=== PATIENT | female | born 1945 | race Caucasian/White ===

== ENCOUNTER → 2019-04-14 08:23 | Outpatient (BNVA) | payer MEDICARE, MEDICAID, SELFPAY | PROVIDERS: Family Provider Nurse Practitioner Family; PCP Nurse Practitioner Family; Visit Provider Nurse Practitioner | DX: M54.5 Low back pain (principal); M47.9 Spondylosis, unspecified; M54.2 Cervicalgia; Z79.891 Long term (current) use of opiate analgesic | CPT/HCPCS: 99213 ==

== ENCOUNTER → 2019-04-22 16:22 | Outpatient (BNVA) | payer MEDICARE, MEDICAID, SELFPAY | PROVIDERS: Family Provider Nurse Practitioner Family; PCP Nurse Practitioner Family; Visit Provider Nurse Practitioner Family | DX: M25.511 Pain in right shoulder (principal); B02.9 Zoster without complications; M75.31 Calcific tendinitis of right shoulder; M19.011 Primary osteoarthritis, right shoulder | CPT/HCPCS: 73030 ==

== ENCOUNTER → 2019-04-27 09:49 | Outpatient (BNVA) | payer MEDICARE, MEDICAID, SELFPAY | PROVIDERS: Family Provider Nurse Practitioner Family; PCP Nurse Practitioner Family; Visit Provider Nurse Practitioner Family | DX: M75.31 Calcific tendinitis of right shoulder (principal); M19.011 Primary osteoarthritis, right shoulder; M24.111 Other articular cartilage disorders, right shoulder; G31.9 Degenerative disease of nervous system, unspecified; I67.82 Cerebral ischemia; R55 Syncope and collapse; M25.511 Pain in right shoulder; W19.XXXA Unspecified fall, initial encounter; Y92.009 Unspecified place in unspecified non-institutional (private) residence as the place of occurrence of the external cause | CPT/HCPCS: 73030; 80053; 82728; 83540; 83550; 85025 ==

== ENCOUNTER 2019-04-28 07:26 | Outpatient (CLI) | payer MEDICARE, MEDICAID, SELFPAY ==
--- NOTE | 2019-04-28 08:00 | CT_ITS ---
WS: [id number] CT HEAD NONCONTRAST HISTORY: Patient fell, syncope. TECHNIQUE: Contiguous axial imaging performed through the brain in 2.5 mm imaging. Bone and soft tiss ue windows. Sagittal and coronal reformats reviewed. All CT scans at [facility] use at le ast one of these dose optimization techniques: automated exposure control; mA and/or kV adjustment pe r patient size (includes targeted exams where dose is matched to clinical indication); or iterative r econstruction. DLP: 722.79 mGy.cm COMPARISON: None available. No acute intracranial hemorrhage, midline shift or mass effect. Mild atrophy and mild chronic microvascular ischemic disease. No infarcts. Ventricles: Normal size with no hydrocephalus. No inferior displacement of cerebellar tonsils. Visualized clivus and pituitary gland are normal. Paranasal sinuses: As visualized are clear. Mastoid air cells: Well pneumatized. Calvarium and scalp: Skull is intact with no soft tissue edema or swelling. CT/CT head wo con* [id number] IMPRESSION: 1. No acute intracranial hemorrhage or edema. 2. Mild atrophy and chronic ischemic disease.
== END 2019-04-28 07:27 | disposition home or self-care (01) ==
LOC: US 07:30
PROVIDERS: Family Provider Nurse Practitioner Family; PCP Nurse Practitioner Family; Visit Provider Nurse Practitioner Family
DX: R55 Syncope and collapse (principal); W19.XXXA Unspecified fall, initial encounter; I67.82 Cerebral ischemia
CPT/HCPCS: 70450

== ENCOUNTER → 2019-06-09 08:44 | Outpatient (BNVA) | payer MEDICARE, MEDICAID, SELFPAY | PROVIDERS: Family Provider Nurse Practitioner Family; PCP Nurse Practitioner Family; Visit Provider Anesthesiology | DX: Z76.89 Persons encountering health services in other specified circumstances (principal) ==

== ENCOUNTER → 2019-07-16 07:57 | Outpatient (BNVA) | payer MEDICARE, MEDICAID, SELFPAY | PROVIDERS: Family Provider Nurse Practitioner Family; PCP Nurse Practitioner Family; Visit Provider Anesthesiology | DX: M79.602 Pain in left arm (principal); M25.512 Pain in left shoulder; R10.9 Unspecified abdominal pain; R73.09 Other abnormal glucose | CPT/HCPCS: 36416; 82962 ==

== ENCOUNTER → 2019-08-12 08:56 | Outpatient (BNVA) | payer MEDICARE, MEDICAID, SELFPAY | PROVIDERS: Family Provider Nurse Practitioner Family; PCP Nurse Practitioner Family; Visit Provider Nurse Practitioner Family | DX: I10 Essential (primary) hypertension (principal); E05.90 Thyrotoxicosis, unspecified without thyrotoxic crisis or storm; K21.9 Gastro-esophageal reflux disease without esophagitis; J30.89 Other allergic rhinitis; R11.0 Nausea; E04.9 Nontoxic goiter, unspecified; R10.9 Unspecified abdominal pain | CPT/HCPCS: 80053; 80061; 84443; 85025 ==

== ENCOUNTER 2019-09-08 09:21 | Outpatient (CLI) | payer MEDICARE, MEDICAID, SELFPAY ==
--- NOTE | 2019-09-08 10:15 | US_ITS ---
WS: [id number] ULTRASOUND THYROID TECHNIQUE: Ultrasound of the thyroid. CLINICAL INFORMATION: goiter, hyperthroidism COMPARISON: 2019 FINDINGS: Thyroid: Heterogeneous thyroid echotexture bilaterally with small cystic nodules. No dominant nodules to target for biopsy. This is unchanged from previous.. Right thyroid lobe: 6.2 cm x 3.2 cm x 4.3 cm Left thyroid lobe: 7.3 cm x 4.1 cm x 3.3 cm. Isthmus: 5.4 mm. Cervical lymphadenopathy: None. US/US thyroid [id number] IMPRESSION: 1. Heterogeneous thyroid echotexture bilaterally consistent with multinodular goiter is unchanged in appearance. No dominant nodules.
== END 2019-09-08 09:22 | disposition home or self-care (01) ==
LOC: US 09:24
PROVIDERS: Family Provider Nurse Practitioner Family; PCP Nurse Practitioner Family; Visit Provider Nurse Practitioner Family
DX: E04.9 Nontoxic goiter, unspecified (principal); E05.90 Thyrotoxicosis, unspecified without thyrotoxic crisis or storm
CPT/HCPCS: 76536

== ENCOUNTER → 2019-09-18 08:58 | Outpatient (BNVA) | payer MEDICARE, MEDICAID, SELFPAY | PROVIDERS: Family Provider Nurse Practitioner Family; PCP Nurse Practitioner Family; Visit Provider Anesthesiology | DX: M54.42 Lumbago with sciatica, left side (principal); M54.41 Lumbago with sciatica, right side; M54.9 Dorsalgia, unspecified; M47.9 Spondylosis, unspecified; Z79.891 Long term (current) use of opiate analgesic | CPT/HCPCS: 99213; 99214 ==

== ENCOUNTER → 2019-11-19 07:51 | Outpatient (BNVA) | payer MEDICARE, MEDICAID, SELFPAY | PROVIDERS: Family Provider Nurse Practitioner Family; PCP Nurse Practitioner Family; Visit Provider Anesthesiology | DX: M54.42 Lumbago with sciatica, left side (principal); M54.41 Lumbago with sciatica, right side; M54.9 Dorsalgia, unspecified; M47.9 Spondylosis, unspecified; Z79.891 Long term (current) use of opiate analgesic | CPT/HCPCS: 99213; 99214 ==

== ENCOUNTER → 2019-11-24 13:38 | Outpatient (BNVA) | payer MEDICARE, MEDICAID, SELFPAY | PROVIDERS: Family Provider Nurse Practitioner Family; PCP Nurse Practitioner Family; Visit Provider Nurse Practitioner Family | DX: R30.0 Dysuria (principal) | CPT/HCPCS: 81000 ==

== ENCOUNTER → 2019-11-26 10:20 | Outpatient (BNVA) | payer MEDICARE, MEDICAID, SELFPAY | PROVIDERS: Family Provider Nurse Practitioner Family; PCP Nurse Practitioner Family; Referring Provider Dermatology; Visit Provider Dermatology | DX: L57.0 Actinic keratosis (principal); L82.0 Inflamed seborrheic keratosis; D48.5 Neoplasm of uncertain behavior of skin; L82.1 Other seborrheic keratosis; D23.9 Other benign neoplasm of skin, unspecified; S80.811A Abrasion, right lower leg, initial encounter; X58.XXXA Exposure to other specified factors, initial encounter | CPT/HCPCS: 17000; 17003; 17110; 99203; 99204 ==

== ENCOUNTER → 2019-12-24 10:10 | Outpatient (BNVA) | payer MEDICARE, MEDICAID, SELFPAY | PROVIDERS: Family Provider Nurse Practitioner Family; PCP Nurse Practitioner Family; Visit Provider Dermatology | DX: D48.9 Neoplasm of uncertain behavior, unspecified (principal) | CPT/HCPCS: 88304 ==

== ENCOUNTER → 2020-01-15 09:10 | Outpatient (BNVA) | payer MEDICARE, MEDICAID, SELFPAY | PROVIDERS: Family Provider Nurse Practitioner Family; PCP Nurse Practitioner Family; Visit Provider Anesthesiology | DX: M54.42 Lumbago with sciatica, left side (principal); M54.41 Lumbago with sciatica, right side; M47.9 Spondylosis, unspecified; M54.9 Dorsalgia, unspecified; Z79.891 Long term (current) use of opiate analgesic | CPT/HCPCS: 99212; 99214 ==

== ENCOUNTER → 2020-02-11 08:59 | Outpatient (BNVA) | payer MEDICARE, MEDICAID, SELFPAY | PROVIDERS: Family Provider Nurse Practitioner Family; PCP Nurse Practitioner Family; Visit Provider Nurse Practitioner Family | DX: I10 Essential (primary) hypertension (principal); E05.90 Thyrotoxicosis, unspecified without thyrotoxic crisis or storm; Z13.21 Encounter for screening for nutritional disorder; K21.9 Gastro-esophageal reflux disease without esophagitis; R11.0 Nausea; E04.9 Nontoxic goiter, unspecified; Z12.39 Encounter for other screening for malignant neoplasm of breast; Z90.12 Acquired absence of left breast and nipple; R53.83 Other fatigue; Z12.31 Encounter for screening mammogram for malignant neoplasm of breast | CPT/HCPCS: 80053; 80061; 82306; 84443; 85025 ==

== ENCOUNTER → 2020-03-16 09:10 | Outpatient (BNVA) | payer MEDICARE, MEDICAID, SELFPAY | PROVIDERS: Family Provider Nurse Practitioner Family; PCP Nurse Practitioner Family; Visit Provider Anesthesiology | DX: M47.9 Spondylosis, unspecified (principal); M54.9 Dorsalgia, unspecified; Z79.891 Long term (current) use of opiate analgesic | CPT/HCPCS: 99214 ==

== ENCOUNTER → 2020-04-22 11:46 | Outpatient (BNVA) | payer MEDICARE, MEDICAID, SELFPAY | PROVIDERS: PCP Nurse Practitioner Family; Visit Provider Nurse Practitioner | DX: I70.0 Atherosclerosis of aorta (principal); Z77.29 Contact with and (suspected) exposure to other hazardous substances; F41.9 Anxiety disorder, unspecified | CPT/HCPCS: 71046 ==

== ENCOUNTER → 2020-05-11 08:49 | Outpatient (BNVA) | payer MEDICARE, MEDICAID, SELFPAY | PROVIDERS: PCP Nurse Practitioner Family; Visit Provider Anesthesiology | DX: M54.42 Lumbago with sciatica, left side (principal); M47.9 Spondylosis, unspecified; M54.9 Dorsalgia, unspecified; Z79.891 Long term (current) use of opiate analgesic | CPT/HCPCS: 99213 ==

== ENCOUNTER → 2020-07-13 09:02 | Outpatient (BNVA) | payer MEDICARE, MEDICAID, SELFPAY | PROVIDERS: PCP Nurse Practitioner Family; Visit Provider Anesthesiology | DX: M47.9 Spondylosis, unspecified (principal); M54.9 Dorsalgia, unspecified; Z79.891 Long term (current) use of opiate analgesic | CPT/HCPCS: 99213 ==

== ENCOUNTER → 2020-07-27 14:38 | Outpatient (BNVA) | payer MEDICARE, MEDICAID, SELFPAY | PROVIDERS: PCP Nurse Practitioner Family; Visit Provider Nurse Practitioner Family | DX: R53.83 Other fatigue (principal); I10 Essential (primary) hypertension; E05.90 Thyrotoxicosis, unspecified without thyrotoxic crisis or storm; E04.9 Nontoxic goiter, unspecified; R11.0 Nausea; K21.9 Gastro-esophageal reflux disease without esophagitis; J30.89 Other allergic rhinitis; E55.9 Vitamin D deficiency, unspecified; F41.9 Anxiety disorder, unspecified; R53.1 Weakness; X00.1XXA Exposure to smoke in uncontrolled fire in building or structure, initial encounter | CPT/HCPCS: 80053; 80061; 82306; 82607; 84443; 85025 ==

== ENCOUNTER 2020-07-28 17:01 | Observation (INO) | payer MEDICARE, MEDICAID, SELFPAY ==
[2020-07-28] VITALS (11 sets, daily range): BP systolic 138–169; BP diastolic 65–84; PULSE 75–88; RESP 12–16; TEMP 36.7–37; O2SAT 96–100; BMI 18.8
--- NOTE | 2020-07-28 17:42 | W.ED.GENADLT ---
Documented by User: Edd Patino DO 07/29/20 08:53 HPI - General Adult General: Chief complaint: General Medical Stated complaint: LOW HEMOGLOBIN Time Seen by Provider: 07/28/20 17:27 History of Present Illness: HPI narrative: 75-year-old female presents to the emergency room from her primary care doctor's office. She not been feeling well for a while she was recently evaluated and had a hemoglobin today that came back at 5 6. She tells me that a few years ago she had anemia and required transfusion as well. Patient was sent here for transfusion. She denies any hematochezia melena hematemesis coffee-ground emesis she cannot really tell me what happened last time that she required a transfusion she does not seem to recall having a endoscopy evaluation. When I asked her question she is somewhat confused she gives me a long detailed history about her breast lump that was removed but is not really able to tell me about her anemia or any evaluation for anemia in the past. Onset (ago): unknown Relieving factors: none Exacerbating factors: none Associated symptoms: Reports confusion and weakness; Deny chest pain, cough, diaphoresis, decreased appetite, dyspnea, fevers/chills, headache(s), malaise, nausea, rash, palpitations, seizures, short of breath, syncope or vomiting Treatments prior to arrival: none Review of Systems Const: Denies: malaise or diaphoresis ENMT: Denies: throat pain, ear or mastoid pain, nasal discharge or nasal congestion Card: Denies: chest pain, palpitations or syncope Resp: Denies: dyspnea GI: Denies: nausea or vomiting : Denies: flank pain, difficulty voiding, dysuria, urinary frequency or urinary urgency Skin/Breast: Denies: rash Neuro: Reports: confusion; Denies: headache(s) PFSH ED PFSH: Medical History Breast cancer in female Chronic GERD Chronic nausea DDD (degenerative disc disease) Cervical and Lumbar Environmental and seasonal allergies Essential hypertension Goiter Hyperthyroidism Long-term current use of opiate analgesic Pain management contract signed Spondylosis and allied disorders With radiculopathy Surgical History H/O left mastectomy Hx of cataract extraction (~2012) bilateral Hx of section Hx of hysterectomy, total Hx of left mastectomy total of 5 surgeries on her left breast had implant for 30 days then removed. Then had permanent implant in. Family History Other Diabetes Hypertension Vascular disease Denies family history of Anesthesia complication Bleeding disorder Social History Smoking and tobacco status: never smoked Second hand smoke exposure: No Smoking risk assessment/counseling performed?: No Alcohol intake: never Desire information about alcohol rehabilitation?: No Counseling given: No Desire information about substance/drug rehabilitation?: No Counseling given: No Adopted: No Caregiver/support person: No Lives independently: Yes Household members: none Housing: House Marital status: / service: No Current occupational status: retired History of recent travel: No Current gender identity: Female Physical Exam Const: COMMON NORMALS: no acute distress GENERAL APPEARANCE: cooperative and comfortable ORIENTATION/CONSCIOUSNESS: Yes oriented to person, Yes oriented to place and Yes oriented to time HENMT: COMMON NORMALS: normocephalic, atraumatic and hearing grossly normal bilaterally HEAD & SCALP: normocephalic and atraumatic Neck/C-Spine: COMMON NORMALS: no JVD Resp: COMMON NORMALS: normal respiratory effort, No retractions, No use of accessory muscles and clear to auscultation bilaterally AUSCULTATION: clear to auscultation bilaterally Cardio: COMMON NORMALS: no JVD, regular rate, regular rhythm and No murmurs present (Cardio) RATE: regular rate RHYTHM: regular rhythm GI: COMMON NORMALS: Soft to palpation and No hepatosplenomegaly present AUSCULTATION: Yes normoactive bowel sounds PALPATION: Yes Soft to palpation, No Tenderness to palpation present (GI), No Guarding due to palpation present (GI) and Yes No hepatosplenomegaly present Extremity: COMMON NORMALS: normal to inspection, capillary refill normal, no clubbing, cyanosis or edema, no calf tenderness and no pedal edema Neuro: SENSORIUM/ORIENTATION: Yes oriented to person, Yes oriented to place and Yes oriented to time Skin: COMMON NORMALS: no rashes or lesions noted GENERAL SKIN EXAM: no rashes or lesions noted Course Vital Signs: Vital signs: Vital Signs Temperature 98.9 F 07/29/20 08:00 Pulse Rate 66 07/29/20 08:00 Respiratory Rate 16 07/29/20 08:00 Blood Pressure 151/79 07/29/20 08:00 Pulse Oximetry 99 07/29/20 08:00 MDM - General Adult MDM Narrative: Medical decision making narrative: Severe anemia. Her blood pressure has been stable. She has no active bleeding. She relates she has had this before she is moderately confused when asked specific questions about bleeding history of previous GI work-up she goes into a long story about a previous breast biopsy she had done. Labs still pending care turned over to Dr. Colorado see his notes for final diagnosis and disposition. Lab Data: Labs: Lab Results 07/28/20 07/28/20 07/28/20 Range/Units 17:35 17:35 17:35 WBC 4.7 (4.0-10.0) 10^3/ uL RBC 2.64 L (4.1-5.3) 10^6/u L Hgb 5.0 L* (11.5-15.3) g/dL Hct 19.2 L* (37.0-47.0) % MCV 72.7 L (81-99) fL MCH 18.9 L (28.0-34.0) pg MCHC 26.0 L (30.0-36.0) g/dL RDW 16.5 H (12.1-15.1) % Plt Count 310 (130-400) 10^3/c mm MPV 9.9 (7.4-10.4) fL Neut % (Auto) 60.7 % Lymph % (Auto) 23.9 % Cochran % (Auto) 12.0 % Eos % (Auto) 2.1 % Baso % (Auto) 1.1 % Neut # (Auto) 2.84 (1.8-7.7) 10^3/u L Lymph # (Auto) 1.1 (0.8-4.8) 10^3/u L Cochran # (Auto) 0.6 (0.2-0.9) 10^3/u L Eos # (Auto) 0.1 (0.0-0.8) 10^3/u L Baso # (Auto) 0.1 (0.0-0.1) 10^3/u L Nucleated RBC % (a uto) 0 % Nucleated RBCs # 0.0 /100WBC Sodium 140 (136-145) mmol/L Potassium 4.2 (3.5-5.1) mmol/L Chloride 105 (98-107) mmol/L Carbon Dioxide 26 (22-29) mmol/L Anion Gap 13.2 (5-19) BUN 18 (8-23) mg/dL Creatinine 0.7 (0.5-0.9) mg/dL GFR Calculation Not Reportable Glucose 106 (65-115) mg/dL Calculated Osmolal ity 292 (285-295) mOsm/k g Calcium 9.1 (8.5-10.5) mg/dL Iron (37-145) ug/dL TIBC mcg/dl % Saturation (20-50) % Unsat Iron Binding (112-347) ug/dL Transferrin (200-360) mg/dL Ferritin (15-150) ng/mL Total Bilirubin 0.2 (0.15-1.2) mg/dL AST 13 (0-32) U/L ALT 9 (0-33) U/L Alkaline Phosphata se 79 (35-105) IU/L Total Protein 6.9 (6.6-8.7) g/dL Albumin 4.2 (3.5-5.2) g/dL Globulin 2.7 (1.3-4.6) g/dL Vitamin B12 (232-1245) pg/mL Folate (4.8-37.3) ng/mL Blood Type O Positive Rho(D) Type Positive / 4+ Antibody Screen Negative Crossmatch See Detail 07/28/20 07/28/20 07/28/20 Range/Units 17:35 17:35 17:35 WBC (4.0-10.0) 10^3/ uL RBC (4.1-5.3) 10^6/u L Hgb (11.5-15.3) g/dL Hct (37.0-47.0) % MCV (81-99) fL MCH (28.0-34.0) pg MCHC (30.0-36.0) g/dL RDW (12.1-15.1) % Plt Count (130-400) 10^3/c mm MPV (7.4-10.4) fL Neut % (Auto) % Lymph % (Auto) % Cochran % (Auto) % Eos % (Auto) % Baso % (Auto) % Neut # (Auto) (1.8-7.7) 10^3/u L Lymph # (Auto) (0.8-4.8) 10^3/u L Cochran # (Auto) (0.2-0.9) 10^3/u L Eos # (Auto) (0.0-0.8) 10^3/u L Baso # (Auto) (0.0-0.1) 10^3/u L Nucleated RBC % (a uto) % Nucleated RBCs # /100WBC Sodium (136-145) mmol/L Potassium (3.5-5.1) mmol/L Chloride (98-107) mmol/L Carbon Dioxide (22-29) mmol/L Anion Gap (5-19) BUN (8-23) mg/dL Creatinine (0.5-0.9) mg/dL GFR Calculation Glucose (65-115) mg/dL Calculated Osmolal ity (285-295) mOsm/k g Calcium (8.5-10.5) mg/dL Iron 14 L (37-145) ug/dL TIBC 420 mcg/dl % Saturation 3.3 L (20-50) % Unsat Iron Binding 406 H (112-347) ug/dL Transferrin 344 (200-360) mg/dL Ferritin 5 L (15-150) ng/mL Total Bilirubin (0.15-1.2) mg/dL AST (0-32) U/L ALT (0-33) U/L Alkaline Phosphata se (35-105) IU/L Total Protein (6.6-8.7) g/dL Albumin (3.5-5.2) g/dL Globulin (1.3-4.6) g/dL Vitamin B12 662 (232-1245) pg/mL Folate 18.3 (4.8-37.3) ng/mL Blood Type Rho(D) Type Antibody Screen Crossmatch Discharge Plan Discharge Patient Disposition: Admitted As Inpatient Admit Provider: Conrado Rice Clinical Impression: Anemia Qualifiers: Anemia type: unspecified type Qualified Code(s): D64.9 - Anemia, unspecified Condition: Stable Coding Level of Care Code ED Car Installations Supervisor for Chg Fwd Documented by User: Imer Colorado MD 07/28/20 18:54 HPI - General Adult General: Chief complaint: General Medical Stated complaint: LOW HEMOGLOBIN Time Seen by Provider: 07/28/20 17:27 PFSH ED PFSH: Medical History Breast cancer in female Chronic GERD Chronic nausea DDD (degenerative disc disease) Cervical and Lumbar Environmental and seasonal allergies Essential hypertension Goiter Hyperthyroidism Long-term current use of opiate analgesic Pain management contract signed Spondylosis and allied disorders With radiculopathy Surgical History H/O left mastectomy Hx of cataract extraction (~2012) bilateral Hx of section Hx of hysterectomy, total Hx of left mastectomy total of 5 surgeries on her left breast had implant for 30 days then removed. Then had permanent implant in. Family History Other Diabetes Hypertension Vascular disease Denies family history of Anesthesia complication Bleeding disorder Social History Smoking and tobacco status: never smoked Second hand smoke exposure: No Smoking risk assessment/counseling performed?: No Alcohol intake: never Desire information about alcohol rehabilitation?: No Counseling given: No Desire information about substance/drug rehabilitation?: No Counseling given: No Adopted: No Caregiver/support person: No Lives independently: Yes Household members: none Housing: House Marital status: / service: No Current occupational status: retired History of recent travel: No Current gender identity: Female Course Vital Signs: Vital signs: Vital Signs Temperature 98.9 F 07/29/20 08:00 Pulse Rate 66 07/29/20 08:00 Respiratory Rate 16 07/29/20 08:00 Blood Pressure 151/79 07/29/20 08:00 Pulse Oximetry 99 07/29/20 08:00 MDM - General Adult MDM Narrative: Medical decision making narrative: Patient presents here with anemia with hemoglobin here of 5.0. She has no signs of active bleeding in her blood pressure here is normal. Will transfuse 2 units I spoke to hospitalist will admit at this time. She has been stable on the ER Lab Data: Labs: Lab Results 07/28/20 07/28/20 07/28/20 Range/Units 17:35 17:35 17:35 WBC 4.7 (4.0-10.0) 10^3/ uL RBC 2.64 L (4.1-5.3) 10^6/u L Hgb 5.0 L* (11.5-15.3) g/dL Hct 19.2 L* (37.0-47.0) % MCV 72.7 L (81-99) fL MCH 18.9 L (28.0-34.0) pg MCHC 26.0 L (30.0-36.0) g/dL RDW 16.5 H (12.1-15.1) % Plt Count 310 (130-400) 10^3/c mm MPV 9.9 (7.4-10.4) fL Neut % (Auto) 60.7 % Lymph % (Auto) 23.9 % Cochran % (Auto) 12.0 % Eos % (Auto) 2.1 % Baso % (Auto) 1.1 % Neut # (Auto) 2.84 (1.8-7.7) 10^3/u L Lymph # (Auto) 1.1 (0.8-4.8) 10^3/u L Cochran # (Auto) 0.6 (0.2-0.9) 10^3/u L Eos # (Auto) 0.1 (0.0-0.8) 10^3/u L Baso # (Auto) 0.1 (0.0-0.1) 10^3/u L Nucleated RBC % (a uto) 0 % Nucleated RBCs # 0.0 /100WBC Sodium 140 (136-145) mmol/L Potassium 4.2 (3.5-5.1) mmol/L Chloride 105 (98-107) mmol/L Carbon Dioxide 26 (22-29) mmol/L Anion Gap 13.2 (5-19) BUN 18 (8-23) mg/dL Creatinine 0.7 (0.5-0.9) mg/dL GFR Calculation Not Reportable Glucose 106 (65-115) mg/dL Calculated Osmolal ity 292 (285-295) mOsm/k g Calcium 9.1 (8.5-10.5) mg/dL Iron (37-145) ug/dL TIBC mcg/dl % Saturation (20-50) % Unsat Iron Binding (112-347) ug/dL Transferrin (200-360) mg/dL Ferritin (15-150) ng/mL Total Bilirubin 0.2 (0.15-1.2) mg/dL AST 13 (0-32) U/L ALT 9 (0-33) U/L Alkaline Phosphata se 79 (35-105) IU/L Total Protein 6.9 (6.6-8.7) g/dL Albumin 4.2 (3.5-5.2) g/dL Globulin 2.7 (1.3-4.6) g/dL Vitamin B12 (232-1245) pg/mL Folate (4.8-37.3) ng/mL Blood Type O Positive Rho(D) Type Positive / 4+ Antibody Screen Negative Crossmatch See Detail 07/28/20 07/28/20 07/28/20 Range/Units 17:35 17:35 17:35 WBC (4.0-10.0) 10^3/ uL RBC (4.1-5.3) 10^6/u L Hgb (11.5-15.3) g/dL Hct (37.0-47.0) % MCV (81-99) fL MCH (28.0-34.0) pg MCHC (30.0-36.0) g/dL RDW (12.1-15.1) % Plt Count (130-400) 10^3/c mm MPV (7.4-10.4) fL Neut % (Auto) % Lymph % (Auto) % Cochran % (Auto) % Eos % (Auto) % Baso % (Auto) % Neut # (Auto) (1.8-7.7) 10^3/u L Lymph # (Auto) (0.8-4.8) 10^3/u L Cochran # (Auto) (0.2-0.9) 10^3/u L Eos # (Auto) (0.0-0.8) 10^3/u L Baso # (Auto) (0.0-0.1) 10^3/u L Nucleated RBC % (a uto) % Nucleated RBCs # /100WBC Sodium (136-145) mmol/L Potassium (3.5-5.1) mmol/L Chloride (98-107) mmol/L Carbon Dioxide (22-29) mmol/L Anion Gap (5-19) BUN (8-23) mg/dL Creatinine (0.5-0.9) mg/dL GFR Calculation Glucose (65-115) mg/dL Calculated Osmolal ity (285-295) mOsm/k g Calcium (8.5-10.5) mg/dL Iron 14 L (37-145) ug/dL TIBC 420 mcg/dl % Saturation 3.3 L (20-50) % Unsat Iron Binding 406 H (112-347) ug/dL Transferrin 344 (200-360) mg/dL Ferritin 5 L (15-150) ng/mL Total Bilirubin (0.15-1.2) mg/dL AST (0-32) U/L ALT (0-33) U/L Alkaline Phosphata se (35-105) IU/L Total Protein (6.6-8.7) g/dL Albumin (3.5-5.2) g/dL Globulin (1.3-4.6) g/dL Vitamin B12 662 (232-1245) pg/mL Folate 18.3 (4.8-37.3) ng/mL Blood Type Rho(D) Type Antibody Screen Crossmatch Discharge Plan Discharge Patient Disposition: Admitted As Inpatient Admit Provider: Conrado Rice Clinical Impression: Anemia Qualifiers: Anemia type: unspecified type Qualified Code(s): D64.9 - Anemia, unspecified Condition: Stable Coding Level of Care Code ED Car Installations Supervisor for Alfredo Lindsay
[2020-07-28 17:50] LABS: Basophils # 0.1 10^3/uL (0.0-0.1); Basophils % 1.1 %; Eosinophils # 0.1 10^3/uL (0.0-0.8); Eosinophils % 2.1 %; Lymphocytes # 1.1 10^3/uL (0.8-4.8); Lymphocytes % 23.9 %; Mean Corpuscular Hemoglobin 18.9 pg (28.0-34.0); Mean Corpuscular Volume 72.7 fL (81-99); Mean Platelet Volume 9.9 fL (7.4-10.4); Monocytes # 0.6 10^3/uL (0.2-0.9); Neutrophils # 2.84 10^3/uL (1.8-7.7); Neutrophils % 60.7 %; Nucleated Red Blood Cells % 0 %; Platelet Count 310 10^3/cmm (130-400); Red Blood Count 2.64 10^6/uL (4.1-5.3); Red Cell Distribution Width 16.5 % (12.1-15.1); White Blood Count 4.7 10^3/uL (4.0-10.0)
[2020-07-28 17:54] LABS: Hematocrit 19.2 % (37.0-47.0)
[2020-07-28 18:09] LABS: Alanine Aminotransferase 9 U/L (0-33); Albumin Level 4.2 g/dL (3.5-5.2); Alkaline Phosphatase 79 IU/L (35-105); Anion Gap 13.2 (5-19); Aspartate Amino Transferase 13 U/L (0-32); Blood Urea Nitrogen 18 mg/dL (8-23); Calcium 9.1 mg/dL (8.5-10.5); Carbon Dioxide 26 mmol/L (22-29); Chloride 105 mmol/L (98-107); Globulin 2.7 g/dL (1.3-4.6); Glucose 106 mg/dL (65-115); Osmolality Calculated 292 mOsm/kg (285-295); Potassium 4.2 mmol/L (3.5-5.1); Sodium 140 mmol/L (136-145); Total Bilirubin 0.2 mg/dL (0.15-1.2); Total Protein 6.9 g/dL (6.6-8.7)
--- NOTE | 2020-07-28 18:44 | PC.PHAR ---
PT STATES SHE TAKES CARE OF HER OWN MEDICATIONS-PT STATES SHE TOOK LISINOPRIL 20MG DAILY YESTERDAY 07/27/[address] ALSO DCED THE LISINOPRIL ON 07/27/20-PTS RX WAS FILLED PRN ON VIT D 50,000 UNITS PT STATES SHE TAKES Q7D-
[2020-07-28 19:23] LABS: INR 1.11 (0.8-1.2)
[2020-07-28 19:24] LABS: Partial Thromboplastin Time 26.4 SECONDS (23.9-36.7)
[2020-07-28 20:06] LABS: Ferritin 5 ng/mL (15-150); Iron 14 ug/dL (37-145); Percent Saturation 3.3 % (20-50); Total Iron Binding Capacity 420 mcg/dl; Transferrin 344 mg/dL (200-360); Unsaturated Iron Binding 406 ug/dL (112-347)
[2020-07-28 20:21] LABS: Folate Level 18.3 ng/mL (4.8-37.3); Vitamin B12 662 pg/mL (232-1245)
[2020-07-28] MEDS: sodium chloride 0.9% (100 ml) 100 ML (21:07)
--- NOTE | 2020-07-28 21:09 | P.HP_ITS ---
Providers/Chief Complaint Admitting Physician: Conrado Rice MD Primary Care Provider: LINNEA Duran-Rosy Chief Complaint: LOW HEMOGLOBIN History of Present Illness Keren Salmon is a 75 year old female with remote history of breast cancer, status post bilateral mastectomy, currently in remission according to the patient, hypertension, dyslipidemia who was sent by her primary care physician to emergency room due to anemia. Here her hemoglobin is 5.0. Her baseline is close to 10. The patient denies any specific complaints. However on further questioning she reports some lightheadedness and decreased energy level. She cannot specify when exactly she noticed these symptoms first. She denies any black stool or bloody stool. She reports constipation. She also reports decreased appetite and occasional nausea and vomiting. Occasionally her emesis is dark. She also reports shortness of breath which was present for last 2 weeks or so. She denies any abdominal pain. No fevers or chills. No chest pain or palpitations. She reports receiving blood transfusion about 2 years ago due to anemia. According to her at that time no source of the bleeding was identified. She was started on iron pills which she takes very irregularly. Review of Systems General: Reports: 10 or more systems reviewed and unremarkable except in HPI and below Medications/Allergies Home Medications Medication Instructions Recorded Confirmed Last Taken Type omeprazole 40 mg capsule,delayed 40 mg PO DAILY 30 Days #30 cap 07/27/20 07/28/20 07/27/20 Rx release Lexapro 10 mg PO QAM 07/28/20 07/28/20 07/27/20 History acetaminophen [Tylenol Extra 500 mg PO PRN 07/28/20 07/28/20 Unknown History Strength] cholecalciferol (vitamin D3) 50,000 unit PO Q7D 07/28/20 07/28/20 07/24/20 History fluticasone propionate 1 spray INTRANASAL DAILY PRN 07/28/20 07/28/20 Unknown History hydrocodone-acetaminophen 1 tab PO .5 times a day PRN 07/28/20 07/28/20 Unknown History lisinopril 20 mg PO QPM 07/28/20 07/28/20 07/27/20 History methimazole 15 mg PO QAM 07/28/20 07/28/20 07/28/20 History multivitamin 1 tab PO BID 05/07/28/20 07/28/20 History ondansetron HCl 8 mg PO Q8H PRN 07/28/20 07/28/20 Unknown History Allergies Allergy/AdvReac Type Severity Reaction Status Date / Time gabapentin Allergy breathing Verified 07/28/20 18:44 difficulty celecoxib [From Celebrex] AdvReac PATIENT Verified 07/28/20 18:44 STATES SHE DOESN'T RECALL tiagabine [From Gabitril] AdvReac DOESN'T Verified 07/28/20 18:44 RECALL tramadol AdvReac headache Verified 07/28/20 18:44 PFSH Acute PFSH: Medical History Breast cancer in female Chronic GERD Chronic nausea DDD (degenerative disc disease) Cervical and Lumbar Environmental and seasonal allergies Essential hypertension Goiter Hyperthyroidism Long-term current use of opiate analgesic Pain management contract signed Spondylosis and allied disorders With radiculopathy Surgical History H/O left mastectomy Hx of cataract extraction (~2012) bilateral Hx of section Hx of hysterectomy, total Hx of left mastectomy total of 5 surgeries on her left breast had implant for 30 days then removed. Then had permanent implant in. Family History Other Diabetes Hypertension Vascular disease Denies family history of Anesthesia complication Bleeding disorder Social History Smoking and tobacco status: never smoked Second hand smoke exposure: No Smoking risk assessment/counseling performed?: No Alcohol intake: never Desire information about alcohol rehabilitation?: No Counseling given: No Desire information about substance/drug rehabilitation?: No Counseling given: No Adopted: No Caregiver/support person: No Lives independently: Yes Household members: none Housing: House Marital status: / service: No Current occupational status: retired History of recent travel: No Current gender identity: Female Vitals/I&O/Wt Last Vital Signs Temp 98.1 F 07/28/20 19:32 Pulse 81 07/28/20 20:49 Resp 16 07/28/20 19:32 BP 146/66 07/28/20 19:32 Pulse Ox 100 07/28/20 19:32 Weight last 48 hrs Weight 53.07 kg Physical Exam Narrative: EXAM NARRATIVE: The patient is currently awake alert oriented. No acute distress. Mood and affect are appropriate. Responses are adequate. Skin is warm and dry. Pale. Moist mucous membranes Eyes PERRL, extraocular muscles are intact normal sclera Neck supple. No JVD Lungs are clear to auscultation bilaterally. No respiratory distress Heart S1, S2, regular Abdomen soft, nontender, bowel sounds are present Extremities no edema cyanosis or calf tenderness bilaterally Neuro examination is nonfocal. Data : 07/28/20 17:35 07/28/20 17:35 Other Labs: Laboratory Results WBC 4.7 10^3/uL (4.0-10.0) 07/28/20 17:35 RBC 2.64 10^6/uL (4.1-5.3) L 07/28/20 17:35 Hgb 5.0 g/dL (11.5-15.3) L* 07/28/20 17:35 Hct 19.2 % (37.0-47.0) L* 07/28/20 17:35 MCV 72.7 fL (81-99) L 07/28/20 17:35 MCH 18.9 pg (28.0-34.0) L 07/28/20 17:35 MCHC 26.0 g/dL (30.0-36.0) L 07/28/20 17:35 RDW 16.5 % (12.1-15.1) H 07/28/20 17:35 Plt Count 310 10^3/cmm (130-400) 07/28/20 17:35 MPV 9.9 fL (7.4-10.4) 07/28/20 17:35 Neut % (Auto) 60.7 % 07/28/20 17:35 Lymph % (Auto) 23.9 % 07/28/20 17:35 Baxter % (Auto) 12.0 % 07/28/20 17:35 Eos % (Auto) 2.1 % 07/28/20 17:35 Baso % (Auto) 1.1 % 07/28/20 17:35 Neut # (Auto) 2.84 10^3/uL (1.8-7.7) 07/28/20 17:35 Lymph # (Auto) 1.1 10^3/uL (0.8-4.8) 07/28/20 17:35 Baxter # (Auto) 0.6 10^3/uL (0.2-0.9) 07/28/20 17:35 Eos # (Auto) 0.1 10^3/uL (0.0-0.8) 07/28/20 17:35 Baso # (Auto) 0.1 10^3/uL (0.0-0.1) 07/28/20 17:35 Nucleated RBC % (auto) 0 % 07/28/20 17:35 Nucleated RBCs # 0.0 /100WBC 07/28/20 17:35 PT 14.70 SECONDS (12.1-14.9) 07/28/20 18:35 INR 1.11 (0.8-1.2) 07/28/20 18:35 APTT 26.4 SECONDS (23.9-36.7) 07/28/20 18:35 Sodium 140 mmol/L (136-145) 07/28/20 17:35 Potassium 4.2 mmol/L (3.5-5.1) 07/28/20 17:35 Chloride 105 mmol/L (98-107) 07/28/20 17:35 Carbon Dioxide 26 mmol/L (22-29) 07/28/20 17:35 Anion Gap 13.2 (5-19) 07/28/20 17:35 BUN 18 mg/dL (8-23) 07/28/20 17:35 Creatinine 0.7 mg/dL (0.5-0.9) 07/28/20 17:35 GFR Calculation Not Reportable 07/28/20 17:35 Glucose 106 mg/dL (65-115) 07/28/20 17:35 Calculated Osmolality 292 mOsm/kg (285-295) 07/28/20 17:35 Calcium 9.1 mg/dL (8.5-10.5) 07/28/20 17:35 Iron 14 ug/dL (37-145) L 07/28/20 17:35 TIBC 420 mcg/dl 07/28/20 17:35 % Saturation 3.3 % (20-50) L 07/28/20 17:35 Unsat Iron Binding 406 ug/dL (112-347) H 07/28/20 17:35 Transferrin 344 mg/dL (200-360) 07/28/20 17:35 Ferritin 5 ng/mL (15-150) L 07/28/20 17:35 Total Bilirubin 0.2 mg/dL (0.15-1.2) 07/28/20 17:35 AST 13 U/L (0-32) 07/28/20 17:35 ALT 9 U/L (0-33) 07/28/20 17:35 Alkaline Phosphatase 79 IU/L (35-105) 07/28/20 17:35 Total Protein 6.9 g/dL (6.6-8.7) 07/28/20 17:35 Albumin 4.2 g/dL (3.5-5.2) 07/28/20 17:35 Globulin 2.7 g/dL (1.3-4.6) 07/28/20 17:35 Vitamin B12 662 pg/mL (232-1245) 07/28/20 17:35 Folate 18.3 ng/mL (4.8-37.3) 07/28/20 17:35 Blood Type O Positive 07/28/20 17:35 Rho(D) Type Positive / 4+ 07/28/20 17:35 Antibody Screen Negative 07/28/20 17:35 Crossmatch See Detail 07/28/20 17:35 A&P Additional A&P Information 75-year-old female with remote history of breast cancer, bilateral mastectomies who is sent by her primary care physician to emergency room for newly diagnosed anemia. Upper GI bleeding is suspected. Acute on chronic acute blood loss anemia. 2 units of RBCs are ordered. The patient is hemodynamically stable. We will continue monitoring her H&H after the transfusion. Will order anemia work-up. Will request surgical evaluation in the morning. Probably she needs upper and possibly also lower GI scope. She will be started on PPI twice daily IV, Carafate, maintenance IV fluids. Hypertension. Currently well controlled. Due to the bleeding will hold her home blood pressure medications. DVT prophylaxis. Teds and SCDs. No anticoagulation due to #1. CODE STATUS. She wants to be full code. The plan of care was discussed with the patient and family. They verbalized understanding and agreement. Attestations Medical Necessity Statement*: Based on my assessment of patient's findings and needs I expect that the patient will spend more than 2 midnights in the hospital. Coding Level of Care Code Acute Paper Sales Representative for Alfredo Lindsay
[2020-07-28] MEDS: sucralfate 1 gm/10 mL Oral Liq UDC PO (22:28)
[2020-07-28] MEDS: zolpidem 5 mg Tablet PO (22:28)
[2020-07-29] VITALS (13 sets, daily range): BP systolic 132–164; BP diastolic 52–79; PULSE 66–77; RESP 14–18; TEMP 36.3–37.2; O2SAT 95–99
[2020-07-29] MEDS: sodium chloride 0.9% (100 ml) 100 ML (00:50)
[2020-07-29] MEDS: sucralfate 1 gm/10 mL Oral Liq UDC PO ×3 (01:48→21:29)
[2020-07-29] MEDS: pantoprazole 40 mg SDV IVP ×2 (03:39→18:43)
[2020-07-29] MEDS: lactated ringers 1,000 ML 100 ML IV ×2 (03:40→21:34)
[2020-07-29 05:39] LABS: Anion Gap 13.4 (5-19); Blood Urea Nitrogen 13 mg/dL (8-23); Calcium 8.4 mg/dL (8.5-10.5); Carbon Dioxide 23 mmol/L (22-29); Chloride 108 mmol/L (98-107); Glucose 97 mg/dL (65-115); Magnesium 2.1 mg/dL (1.7-2.3); Osmolality Calculated 290 mOsm/kg (285-295); Potassium 4.4 mmol/L (3.5-5.1); Sodium 140 mmol/L (136-145)
[2020-07-29 06:36] LABS: Basophils # 0.1 10^3/uL (0.0-0.1); Basophils % 1.3 %; Eosinophils # 0.1 10^3/uL (0.0-0.8); Hematocrit 28.4 % (37.0-47.0); Hemoglobin 8.4 g/dL (11.5-15.3); Lymphocytes # 0.9 10^3/uL (0.8-4.8); Lymphocytes % 19.1 %; Mean Corpuscular HGB Conc 29.6 g/dL (30.0-36.0); Mean Corpuscular Hemoglobin 23.1 pg (28.0-34.0); Mean Corpuscular Volume 78.2 fL (81-99); Mean Platelet Volume 9.9 fL (7.4-10.4); Monocytes # 0.5 10^3/uL (0.2-0.9); Monocytes % 10.9 %; Neutrophils # 2.98 10^3/uL (1.8-7.7); Nucleated Red Blood Cells % 0 %; Platelet Count 265 10^3/cmm (130-400); Red Blood Count 3.63 10^6/uL (4.1-5.3); Red Cell Distribution Width 18.9 % (12.1-15.1)
[2020-07-29 06:37] LABS: White Blood Count 4.5 10^3/uL (4.0-10.0)
[2020-07-29] MEDS: escitalopram 10 mg Tablet PO (06:50)
[2020-07-29 10:47] LABS: Hematocrit 30.7 % (37.0-47.0); Hemoglobin 8.9 g/dL (11.5-15.3)
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
[2020-07-29] MEDS: iron sucrose 200 MG in sodium chloride 0.9% (100 ml) 100 ML 220 MG IV (11:34)
--- NOTE | 2020-07-29 11:46 | P.PN_ITS ---
Subjective Subjective: Interval history: Patient was seen this morning, she is hungry, wondering when she can eat, no bloody black stools overnight, no lightheaded, no dizziness, Vitals/I&O/Wt Last Vital Signs Temp 98.9 F 07/29/20 11:31 Pulse 72 07/29/20 11:31 Resp 16 07/29/20 11:31 BP 164/73 07/29/20 11:31 Pulse Ox 99 07/29/20 11:31 07/28/20 07/29/20 07/29/20 22:59 06:59 14:59 Intake Total 200 / 200 800 / 1000 Output Total 300 / 300 Balance 200 / 200 500 / 700 Weight last 48 hrs Weight 53.07 kg Physical Exam Const: COMMON NORMALS: no acute distress Resp: COMMON NORMALS: normal respiratory effort, No retractions, No use of accessory muscles and clear to auscultation bilaterally AUSCULTATION: clear to auscultation bilaterally Cardio: COMMON NORMALS: regular rate, regular rhythm, S1 normal heart sound present and S2 normal heart sound present RATE: regular rate RHYTHM: regular rhythm HEART SOUNDS: S1 normal heart sound present and S2 normal heart sound present GI: COMMON NORMALS: Normal to inspection, nondistended, normoactive bowel sounds present, Soft to palpation and non-tender PALPATION: Yes Soft to palpation Data : 07/29/20 10:36 07/29/20 04:46 A&P Assessment and plan (1) Anemia: Status: Acute Qualifiers: Anemia type: unspecified type Qualified Code(s): D64.9 - Anemia, unspecified (2) GI bleed: -Has a history of gastric ulcers diagnosed on EGD over 20 years ago -Hemoglobin 5, status post 2 unit PRBC, hemoglobin 8.9 -Hemodynamically stable -No bloody or black stools, has evidence of iron deficiency anemia Plan: -Keep n.p.o. -IV fluids -Monitor hemoglobins -Protonix, Carafate -Hemoccult stool -Monitor hemodynamics -IV Venofer here -General surgery has been consulted for EGD -Full code -SCDs for DVT prophylaxis Status: Acute Additional A&P Information 75-year-old female with remote history of breast cancer, bilateral mastectomies who is sent by her primary care physician to emergency room for newly diagnosed anemia. Upper GI bleeding is suspected. CODE STATUS. She wants to be full code. The plan of care was discussed with the patient and family. They verbalized un derstanding and agreement. Attestations Medical Necessity Statement*: Patient requires hospitalization for anemia, GI bleed, iron deficiency anemia, inpatient, greater than 2 midnights Coding Level of Care Code Acute Field Research Associate for g Fwd Diagnoses Anemia D64.9 Anemia type: unspecified type GI bleed K92.2
[2020-07-29] MEDS: sodium chloride 0.9% 1,000 ML 30 ML IV (12:15)
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
--- NOTE | 2020-07-29 13:26 | ANE.PACU2 ---
Inpatient post-anesthesia follow up: Airway intact: Yes Vital signs: Temperature 97.4 F Pulse Rate 70 Respiratory Rate 16 Blood Pressure 141/66 Pulse Oximetry 99 Oxygen Delivery Me thod [Rate & Room Air Delivery Changed T o] Oxygen Delivery Me thod Room Air Oxygen Flow Rate Fraction of Inspir ed Oxygen Hydration adequate: Yes Nausea and vomiting: No Pain level: 1 Mental status: Baseline
[2020-07-29 20:13] LABS: Hematocrit 29.2 % (37.0-47.0); Hemoglobin 8.7 g/dL (11.5-15.3)
[2020-07-29] MEDS: zolpidem 5 mg Tablet PO (21:28)
[2020-07-30 02:52] LABS: Basophils # 0.1 10^3/uL (0.0-0.1); Eosinophils # 0.2 10^3/uL (0.0-0.8); Eosinophils % 3.6 %; Hematocrit 29.2 % (37.0-47.0); Hemoglobin 8.7 g/dL (11.5-15.3); Lymphocytes # 0.9 10^3/uL (0.8-4.8); Mean Corpuscular HGB Conc 29.8 g/dL (30.0-36.0); Mean Corpuscular Hemoglobin 23.5 pg (28.0-34.0); Mean Corpuscular Volume 78.7 fL (81-99); Monocytes # 0.6 10^3/uL (0.2-0.9); Monocytes % 10.9 %; Neutrophils # 4.08 10^3/uL (1.8-7.7); Neutrophils % 69.3 %; Nucleated Red Blood Cells % 0 %; Platelet Count 249 10^3/cmm (130-400); Red Blood Count 3.71 10^6/uL (4.1-5.3); Red Cell Distribution Width 18.8 % (12.1-15.1); White Blood Count 5.9 10^3/uL (4.0-10.0)
[2020-07-30 03:35] LABS: Alanine Aminotransferase 8 U/L (0-33); Albumin Level 3.6 g/dL (3.5-5.2); Alkaline Phosphatase 82 IU/L (35-105); Anion Gap 14.1 (5-19); Aspartate Amino Transferase 15 U/L (0-32); Blood Urea Nitrogen 12 mg/dL (8-23); Calcium 8.8 mg/dL (8.5-10.5); Carbon Dioxide 22 mmol/L (22-29); Chloride 107 mmol/L (98-107); Globulin 2.5 g/dL (1.3-4.6); Glucose 100 mg/dL (65-115); Osmolality Calculated 288 mOsm/kg (285-295); Phosphorus 3.4 mg/dL (2.5-4.5); Potassium 4.1 mmol/L (3.5-5.1); Sodium 139 mmol/L (136-145); Total Bilirubin 0.2 mg/dL (0.15-1.2); Total Protein 6.1 g/dL (6.6-8.7)
[2020-07-30 03:59] VITALS: BP 127/67; PULSE 82; RESP 17; TEMP 36.8; O2SAT 99
[2020-07-30] MEDS: escitalopram 10 mg Tablet PO (06:50)
[2020-07-30] MEDS: pantoprazole 40 mg SDV IVP (06:50)
[2020-07-30 07:40] VITALS: BP 124/65; PULSE 67; RESP 16; TEMP 37.2; O2SAT 98
[2020-07-30] MEDS: sucralfate 1 gm/10 mL Oral Liq UDC PO (08:01)
[2020-07-30] MEDS: lactated ringers 1,000 ML 100 ML IV (08:02)
[2020-07-30 08:54] LABS: Hematocrit 30.7 % (37.0-47.0); Hemoglobin 8.8 g/dL (11.5-15.3)
--- NOTE | 2020-07-30 10:35 | CTR_ITS ---
PROCEDURE INFORMATION: Exam: CT Abdomen And Pelvis Without Contrast Exam date and time: 07/30/2020 10:45 AM Age: 75 years old Clinical indication: Other: Blood loss; Prior surgery; Surgery date: 6+ months; Surgery type: Hyster; Additional info: Anemia TECHNIQUE: Imaging protocol: Computed tomography of the abdomen and pelvis without contrast. Radiation optimization: All CT scans at this facility use at least one of these dose optimization techniques: automated exposure control; mA and/or kV adjustment per patient size (includes targeted exams where dose is matched to clinical indication); or iterative reconstruction. COMPARISON: No relevant prior studies available. RADIATION DOSE METRICS: Total DLP (mGy-cm): 908.78 FINDINGS: Lungs: Mild left basilar atelectasis and/or pneumonia. Mediastinal space: Large intrathoracic hiatal hernia. Liver: Normal. No mass. Gallbladder and bile ducts: Normal. No calcified stones. No ductal dilation. Pancreas: Normal. No ductal dilation. Spleen: Normal. No splenomegaly. Adrenal glands: Normal. No mass. Kidneys and ureters: Normal. No hydronephrosis. Stomach and bowel: Mild bowel wall thickening in the left colon consistent with mild infectious colitis, microvascular ischemic colitis or inflammatory bowel autoimmune colitis. Appendix: No evidence of appendicitis. Intraperitoneal space: Unremarkable. No free air. No significant fluid collection. Vasculature: Calcification of the abdominal aorta and/or iliac arteries consistent with atherosclerotic vessel disease. One or more calcified pelvic phleboliths. Lymph nodes: Unremarkable. No enlarged lymph nodes. Urinary bladder: Unremarkable as visualized. Reproductive: Status post hysterectomy. Bones/joints: Partial sacralization of the left portion of L5 with unilateral left-sided articulation which can be a source of chronic low back pain. Soft tissues: Probable left mastectomy with left breast implant. Other findings: Postoperative changes over the gastroesophageal junction. CT/CT abdomen pelvis wo con [id number] IMPRESSION: 1. Probable left mastectomy with left breast implant. 2. Mild left basilar atelectasis and/or pneumonia. 3. Large intrathoracic hiatal hernia. 4. Postoperative changes over the gastroesophageal junction. 5. Mild bowel wall thickening in the left colon consistent with mild infectious colitis, microvascular ischemic colitis or inflammatory bowel autoimmune colitis. Radiation Dose CTDIVOL = (mGy): DLP = 908.78 (mGy-cm)
--- NOTE | 2020-07-30 10:41 | P.DS_ITS ---
Discharge Providers Date of Admission: 07/28/20 18:25 Date of Discharge: July 30, 2020 Attending Provider at Admission: Conrado Rice MD Attending Provider at Discharge: Conrado Rice MD Primary Care Provider: WILVER Duran Diagnoses at Discharge Discharge Diagnosis (1) Hematemesis: Status: Acute Qualifiers: Nausea presence: without nausea Qualified Code(s): K92.0 - Hematemesis (2) Anemia: Status: Acute Qualifiers: Anemia type: unspecified type Qualified Code(s): D64.9 - Anemia, unspecified (3) Chronic GERD: Status: Acute (4) NSAID long-term use: Status: Acute (5) History of peptic ulcer disease: Status: Acute Reason for Visit Reason for Visit: LOW HEMOGLOBIN Hospital Course Hospital Course This is a 75-year-old female with a past medical history of breast cancer, history of bilateral mastectomy, hypertension, history of peptic ulcer disease, history of achalasia, who presents to [facility] from her primary care physician's office due to hemoglobin of 5, no bloody or black stools, she does report blood transfusion roughly 2 years ago for anemia, last EGD in 2005 showed achalasia, last colonoscopy in 2017 was unremarkable Patient was admitted to [facility] for anemia, she was status post 2 units PRBC, work-up revealed iron deficiency anemia, received IV Venofer, received Protonix, Carafate, general surgery was consulted, patient had an EGD which showed moderately dilated esophagus due to achalasia, no abnormalities in the stomach, no abnormalities in the duodenum. Hemoglobin discharge was 8.8, she was asymptomatic, discharged on Protonix, Carafate, with instructions to avoid NSAIDs, monitor for bloody or black stools, follow-up with primary care provider in 1 week for recheck CBC. Follow-up with for anemia. She will also receive 3 more doses of IV Venofer as outpatient. On discharge her CT scan of the abdomen pelvis showed: Mild bowel wall thickening in the left colon consistent with mild infectious colitis, microvascular ischemic colitis or inflammatory bowel autoimmune colitis. -No abdominal pain complaints, no diarrhea, no bloody or black stools -Nonetheless I will have patient follow-up with Dr. Khalil for repeat colonoscopy Physical Exam Const: COMMON NORMALS: no acute distress and patient oriented x3 Neck/C-Spine: COMMON NORMALS: no JVD Resp: COMMON NORMALS: normal respiratory effort, No retractions, No use of accessory muscles and clear to auscultation bilaterally AUSCULTATION: clear to auscultation bilaterally Cardio: COMMON NORMALS: no JVD, regular rate, regular rhythm, S1 normal heart sound present and S2 normal heart sound present RATE: regular rate RHYTHM: regular rhythm HEART SOUNDS: S1 normal heart sound present and S2 normal heart sound present GI: COMMON NORMALS: Normal to inspection, nondistended, normoactive bowel sounds present and Soft to palpation PALPATION: Yes Soft to palpation Extremity: COMMON NORMALS: no pedal edema Neuro: COMMON NORMALS: patient oriented x3 Psych: COMMON NORMALS: mental status grossly normal Discharge Data Data Completed and Pending: Pending at discharge Category Date Time Status CT abdomen pelvis wo con [id number] Stat Cat Scan 07/30/20 10:35 Ordered Complete Blood Co unt w/Auto AM LABS Lab 07/31/20 04:00 Ordered Complete Blood Co unt w/Auto AM LABS Lab 08/01/20 04:00 Ordered Comprehensive Met abolic Panel AM LA BS Lab 07/31/20 04:00 Ordered Comprehensive Met abolic Panel AM LA BS Lab 08/01/20 04:00 Ordered Immunochemical Fe cj OCB Routine Lab 07/28/20 17:48 Uncollected Immunochemical Fe cj OCB Routine Lab 07/28/20 19:37 Uncollected Magnesium AM LABS Lab 07/31/20 04:00 Ordered Magnesium AM LABS Lab 08/01/20 04:00 Ordered Phosphorus AM LAB S Lab 07/31/20 04:00 Ordered Phosphorus AM LAB S Lab 08/01/20 04:00 Ordered Labs from last 24 hours 07/30/20 07/30/20 07/30/20 08:40 02:34 02:34 WBC 5.9 RBC 3.71 L Hgb 8.8 L 8.7 L Hct 30.7 L 29.2 L MCV 78.7 L MCH 23.5 L MCHC 29.8 L RDW 18.8 H Plt Count 249 MPV 10.0 Neut % (Auto) 69.3 Lymph % (Auto) 15.0 Bracken % (Auto) 10.9 Eos % (Auto) 3.6 Baso % (Auto) 1.0 Neut # (Auto) 4.08 Lymph # (Auto) 0.9 Bracken # (Auto) 0.6 Eos # (Auto) 0.2 Baso # (Auto) 0.1 Nucleated RBC % (a uto) 0 Nucleated RBCs # 0.0 Sodium 139 Potassium 4.1 Chloride 107 Carbon Dioxide 22 Anion Gap 14.1 BUN 12 Creatinine 0.7 GFR Calculation Not Reportable Glucose 100 Calculated Osmolal ity 288 Calcium 8.8 Phosphorus 3.4 Magnesium 2.0 Total Bilirubin 0.2 AST 15 ALT 8 Alkaline Phosphata se 82 Total Protein 6.1 L Albumin 3.6 Globulin 2.5 07/29/20 07/29/20 19:55 10:36 WBC RBC Hgb 8.7 L 8.9 L Hct 29.2 L 30.7 L MCV MCH MCHC RDW Plt Count MPV Neut % (Auto) Lymph % (Auto) Bracken % (Auto) Eos % (Auto) Baso % (Auto) Neut # (Auto) Lymph # (Auto) Bracken # (Auto) Eos # (Auto) Baso # (Auto) Nucleated RBC % (a uto) Nucleated RBCs # Sodium Potassium Chloride Carbon Dioxide Anion Gap BUN Creatinine GFR Calculation Glucose Calculated Osmolal ity Calcium Phosphorus Magnesium Total Bilirubin AST ALT Alkaline Phosphata se Total Protein Albumin Globulin Vitals: Last Vital Signs Temp 98.9 F 07/30/20 07:40 Pulse 67 07/30/20 07:40 Resp 16 07/30/20 07:40 BP 124/65 07/30/20 07:40 Pulse Ox 98 07/30/20 07:40 Discharge Plan Discharge Patient Disposition: Home Condition: Stable Prescriptions: New Protonix 40 mg tablet,delayed release (DR/EC) 40 mg PO BID 30 Days Qty: 60 RF: 0 Carafate 1 gram tablet 1 g PO Q12H 28 Days Qty: 56 RF: 0 Venofer 200 mg iron/10 mL solution 200 mg IV DAILY 3 Days Qty: 30 RF: 0 Continued omeprazole 40 mg capsule,delayed release(DR/EC) 40 mg PO DAILY 30 Days Qty: 30 RF: 5 multivitamin Tablet 1 tab PO BID RF: 0 lisinopril 20 mg tablet 20 mg PO QPM RF: 0 Tylenol Extra Strength 500 mg Tablet 500 mg PO PRN RF: 0 hydrocodone-acetaminophen 5-325 mg tablet 1 tab PO .5 times a day PRN (Reason: Pain) RF: 0 ondansetron HCl 8 mg tablet 8 mg PO Q8H PRN (Reason: Nausea And Vomiting) RF: 0 methimazole 10 mg tablet 15 mg PO QAM RF: 0 fluticasone propionate 50 mcg/actuation spray,suspension 1 spray INTRANASAL DAILY PRN (Reason: Allergy Symptoms) RF: 0 Lexapro 10 mg tablet 10 mg PO QAM RF: 0 cholecalciferol (vitamin D3) 1,250 mcg (50,000 unit) capsule 50,000 unit PO Q7D RF: 0 Discharge Orders: Discharge Order (Routine); Ordered 07/30/20 Ordered By: Conrado Rice Referrals: Harpreet Khalil MD [Physician] - 1 month (Please call Dr. Khalil's office on Saturday and schedule an appointment to be seen next month.) Shon Morgan MD [Hospitalist] - 1 month (fe defeciency Please call [facility] on Saturday to schedule an appointment.) OUTPATIENT SURGERY, [Staff Physician] - (Centralized Scheduling will be contacting you to inform you of your outpatient IV infusion date and time. If you have not hear from them by Saturday afternoon please call them at [phone] ext. [phone].) Discharge Diet: Regular Discharge Activity: Resume usual activity Patient Instructions: Anemia, Sucralfate (By mouth), Pantoprazole (By mouth), Iron Sucrose (Injection), GI Discharge Instructions, Opioid Safety Activity Restrictions/Additional Instructions: -Please avoid NSAIDs, ibuprofen, naproxen, Excedrin -Use Protonix, Carafate -Follow-up with primary care provider with recheck blood work in 1 week -Follow-up with in 1 month -Iron infusions have been ordered for you, please come to outpatient care, for 3 more doses, and anytime over a 2-week period, 200 mg IV daily Discharge Attestations Time Spent in Discharge Care*: greater than 30 min Quality Metrics Clinical Quality Measures During this hospital stay, did patient experience: None Coding Level of Care Code Acute Chg FW DC note Exam Detailed Diagnoses Hematemesis K92.0 Nausea presence: without nausea Anemia D64.9 Anemia type: unspecified type Chronic GERD K21.9 NSAID long-term use Z79.1 History of peptic ulcer disease Z87.11
[2020-07-30] MEDS: iron sucrose 200 MG in sodium chloride 0.9% (100 ml) 100 ML 220 MG IV (11:10)
--- NOTE | 2020-07-30 11:12 | PC.SOCIAL ---
IV order sent to outpatient surgery, centralized scheduling, and warehouse shipping clerk. Patient can be started on Saturday, per Dr. Rice.
--- NOTE | 2020-07-30 11:16 | PC.OT ---
Occupational therapy screen completed. Patient demonstrate independence in ADLs and adequate functional activity level, no further occupational therapy indicated.
[2020-07-30 11:40] VITALS: PULSE 63; O2SAT 99
[2020-07-30 11:47] VITALS: BP 133/62; PULSE 69; RESP 16; TEMP 36.7; O2SAT 98
[2020-07-30 13:24] VITALS: BP 133/62; PULSE 69; RESP 16; TEMP 36.7; O2SAT 98
--- NOTE | 2020-07-30 15:17 | PC.PT ---
PT note; patient screened for PT evaluation, patient demonstrated Tinetti score of 26/28 indicating very low fall risk, patient demonstrates good safety awareness and abilities, no PT needs identified at this time. Patient agreeable with same as well.
== END 2020-07-30 13:26 | disposition home or self-care (01) ==
LOC: ER 18:06 → MEDSURG 18:53
PROVIDERS: Family Medicine; Internal Medicine; Surgery; Admitting Provider Family Medicine; Emergency Provider Emergency Medicine; PCP Nurse Practitioner Family; Visit Provider Family Medicine
PROC: 0DJ08ZZ Inspection of Upper Intestinal Tract, Via Natural or Artificial Opening Endoscopic (ICD-10-PCS; CPT 43235; principal; 2020-07-29 12:00)
DX: K92.0 Hematemesis (principal); D64.9 Anemia, unspecified; K21.9 Gastro-esophageal reflux disease without esophagitis; Z79.1 Long term (current) use of non-steroidal anti-inflammatories (NSAID); T18.128A Food in esophagus causing other injury, initial encounter; X58.XXXA Exposure to other specified factors, initial encounter; Z87.11 Personal history of peptic ulcer disease; Z90.13 Acquired absence of bilateral breasts and nipples; K92.2 Gastrointestinal hemorrhage, unspecified; D50.9 Iron deficiency anemia, unspecified; E03.9 Hypothyroidism, unspecified; Z79.891 Long term (current) use of opiate analgesic; K22.0 Achalasia of cardia
CPT/HCPCS: 36415; 36430; 43235; 74176; 80048; 80053; 80061; 82274; 82306; 82607; 82728; 82746; 83540; 83550; 83735; 84100; 84443; 84466; 85014; 85018; 85025; 85610; 85730; 86850; 86900; 86920; 99285; C9113; G0378; J1756; J2704; J7030; P9016

== ENCOUNTER → 2020-08-02 11:32 | Day surgery (SDC) | payer MEDICARE, MEDICAID, SELFPAY ==
[2020-08-02 12:00] VITALS: BP 163/73; PULSE 66; RESP 16; TEMP 36.8; O2SAT 99
[2020-08-02] MEDS: iron sucrose 200 MG in sodium chloride 0.9% (100 ml) 100 ML 220 MG IV (12:29)
== END ==
LOC: GILAB 11:41
PROVIDERS: PCP Nurse Practitioner Family; Visit Provider Family Medicine
DX: D64.9 Anemia, unspecified (principal)
CPT/HCPCS: 96365; J1756

== ENCOUNTER → 2020-08-09 12:18 | Day surgery (SDC) | payer MEDICARE, MEDICAID, SELFPAY ==
[2020-08-09 12:42] VITALS: BMI 18.8
[2020-08-09 12:48] VITALS: BP 118/63; PULSE 72; RESP 18; TEMP 36.4; O2SAT 97
[2020-08-09] MEDS: iron sucrose 200 MG in sodium chloride 0.9% (100 ml) 100 ML 220 MG IV (13:25)
== END ==
PROVIDERS: PCP Nurse Practitioner Family; Visit Provider Family Medicine
DX: D64.9 Anemia, unspecified (principal)
CPT/HCPCS: 96365; J1756

== ENCOUNTER → 2020-08-15 11:23 | Outpatient (BNVA) | payer MEDICARE, MEDICAID, SELFPAY | PROVIDERS: PCP Nurse Practitioner Family; Visit Provider Nurse Practitioner Family | DX: I10 Essential (primary) hypertension (principal); E05.90 Thyrotoxicosis, unspecified without thyrotoxic crisis or storm; K21.9 Gastro-esophageal reflux disease without esophagitis; J30.89 Other allergic rhinitis; R11.0 Nausea; E04.9 Nontoxic goiter, unspecified; Z12.39 Encounter for other screening for malignant neoplasm of breast; Z90.12 Acquired absence of left breast and nipple; R53.83 Other fatigue | CPT/HCPCS: 85025 ==

== ENCOUNTER → 2020-08-16 11:44 | Day surgery (SDC) | payer MEDICARE, MEDICAID, SELFPAY ==
[2020-08-16 12:03] VITALS: BP 163/96; PULSE 73; RESP 16; TEMP 36.8; O2SAT 100
[2020-08-16] MEDS: iron sucrose 200 MG in sodium chloride 0.9% (100 ml) 100 ML 220 MG IV (12:25)
== END ==
LOC: GILAB 11:45
PROVIDERS: PCP Nurse Practitioner Family; Visit Provider Family Medicine
DX: D50.9 Iron deficiency anemia, unspecified (principal)
CPT/HCPCS: 96365; J1756

== ENCOUNTER 2020-08-24 06:35 | Outpatient (CLI) | payer MEDICARE, MEDICAID, SELFPAY ==
--- NOTE | 2020-08-24 07:15 | US_ITS ---
WS: [id number] ULTRASOUND THYROID TECHNIQUE: Ultrasound of the thyroid. CLINICAL INFORMATION: E05.90 - Thyrotoxicosis, unspecified without thyrotoxic c... COMPARISON: September 08, 2019 FINDINGS: Thyroid: Markedly enlarged heterogeneous thyroid consistent with goiter. Right thyroid lobe: 6.6 cm x 4.6 cm x 3.5 cm Left thyroid lobe: 7.3 cm x 3.0 cm x 3.4 cm. Isthmus: 6 mm. Cervical lymphadenopathy: None. US/US thyroid [id number] IMPRESSION: 1. Markedly enlarged heterogeneous thyroid consistent with multinodular goiter . 2. No dominant thyroid nodules. 3. No significant changes since September 08, 2019
== END 2020-08-24 06:36 | disposition home or self-care (01) ==
PROVIDERS: PCP Nurse Practitioner Family; Visit Provider Nurse Practitioner Family
DX: E05.90 Thyrotoxicosis, unspecified without thyrotoxic crisis or storm (principal); E04.9 Nontoxic goiter, unspecified
CPT/HCPCS: 76536

== ENCOUNTER → 2020-09-08 10:19 | Outpatient (BNVA) | payer MEDICARE, MEDICAID, SELFPAY | PROVIDERS: PCP Nurse Practitioner Family; Visit Provider Anesthesiology | DX: G89.29 Other chronic pain (principal); M54.2 Cervicalgia; M47.9 Spondylosis, unspecified; M54.9 Dorsalgia, unspecified; M25.512 Pain in left shoulder; M79.602 Pain in left arm; Z79.891 Long term (current) use of opiate analgesic | CPT/HCPCS: 99214 ==

== ENCOUNTER → 2020-10-14 09:21 | Outpatient (BNVA) | payer MEDICARE, MEDICAID, SELFPAY | PROVIDERS: PCP Nurse Practitioner Family; Visit Provider Nurse Practitioner Family | DX: D50.9 Iron deficiency anemia, unspecified (principal); I10 Essential (primary) hypertension | CPT/HCPCS: 82728; 83550; 85025 ==

== ENCOUNTER → 2020-11-01 14:08 | Outpatient (BNVA) | payer MEDICARE, MEDICAID, SELFPAY | PROVIDERS: PCP Nurse Practitioner Family; Visit Provider Anesthesiology | DX: M54.5 Low back pain (principal); M47.9 Spondylosis, unspecified; M54.2 Cervicalgia; M25.512 Pain in left shoulder; Z79.891 Long term (current) use of opiate analgesic | CPT/HCPCS: 99214 ==

== ENCOUNTER → 2020-12-16 08:04 | Outpatient (BNVA) | payer MEDICARE, MEDICAID, SELFPAY | PROVIDERS: PCP Nurse Practitioner Family; Visit Provider Nurse Practitioner Family | DX: D50.9 Iron deficiency anemia, unspecified (principal); I10 Essential (primary) hypertension | CPT/HCPCS: 80053; 80061; 82728; 83550; 84443; 85025 ==

== ENCOUNTER → 2021-01-06 08:40 | Outpatient (BNVA) | payer MEDICARE, MEDICAID, SELFPAY | PROVIDERS: PCP Nurse Practitioner Family; Visit Provider Anesthesiology | DX: G89.29 Other chronic pain (principal); M54.2 Cervicalgia; M54.50 Low back pain, unspecified; M25.512 Pain in left shoulder; Z79.891 Long term (current) use of opiate analgesic | CPT/HCPCS: 99214 ==

== ENCOUNTER → 2021-02-14 10:14 | Outpatient (BNVA) | payer MEDICARE, MEDICAID, SELFPAY | PROVIDERS: PCP Nurse Practitioner Family; Visit Provider Nurse Practitioner Family | DX: E05.90 Thyrotoxicosis, unspecified without thyrotoxic crisis or storm (principal); I10 Essential (primary) hypertension; D64.9 Anemia, unspecified; E55.9 Vitamin D deficiency, unspecified; J30.89 Other allergic rhinitis; R11.0 Nausea; K21.9 Gastro-esophageal reflux disease without esophagitis; F41.9 Anxiety disorder, unspecified; E04.9 Nontoxic goiter, unspecified | CPT/HCPCS: 80053; 80061; 82306; 83540; 84443; 85025 ==

== ENCOUNTER → 2021-03-07 08:22 | Outpatient (BNVA) | payer MEDICARE, MEDICAID, SELFPAY | PROVIDERS: PCP Nurse Practitioner Family; Visit Provider Anesthesiology | DX: G89.29 Other chronic pain (principal); M54.2 Cervicalgia; M54.50 Low back pain, unspecified; M25.512 Pain in left shoulder; M47.9 Spondylosis, unspecified; Z79.891 Long term (current) use of opiate analgesic | CPT/HCPCS: 99214 ==

== ENCOUNTER 2021-03-28 12:33 | Outpatient (CLI) | payer MEDICARE, MEDICAID, SELFPAY ==
--- NOTE | 2021-03-28 12:40 | XR_ITS ---
WS: [email or web address] Exam: XR cervical spine 3V* [id number] Date/Time of Exam: 03/28/2021 1:12 PM Reason For Exam: M47.9 - Spondylosis, unspecified No acute fracture or dislocation noted. Facet DJD at all levels. Spondylosis. Degenerative disc thinn ing at C4-5 and C5-6. The odontoid is intact. There is some widening of the anterior paraspinal soft tissues and leftward tracheal deviation which is likely due to the enlarged thyroid gland which has b een described previously degenerative change of the uncinate processes. XR/XR cervical spine 3V* [id number] IMPRESSION: 1. No acute fracture or malalignment. 2. Degenerative changes. 3. Widening of the prevertebral soft tissues and leftward tracheal deviation mo st likely due to enlarged thyroid gland that has been described previously.
--- NOTE | 2021-03-28 12:40 | XR_ITS ---
WS: [email or web address] Exam: XR lumbar spine 2-3V* [id number] Date/Time of Exam: 03/28/2021 1:12 PM Reason For Exam: M47.9 - Spondylosis, unspecified No acute fracture or dislocation noted. Disc spaces are relatively well maintained. Osteopenia. Facet DJD at L4-5 and L5-S1. Mild levoscoliosis. Partial sacralization of L5. XR/XR lumbar spine 2-3V* [id number] IMPRESSION: 1. No fracture or malalignment. 2. Degenerative changes, osteopenia and mild scoliosis.
--- NOTE | 2021-03-28 12:40 | XR_ITS ---
WS: [email or web address] Exam: XR thoracic spine 3V* [id number] Date/Time of Exam: 03/28/2021 1:12 PM Reason For Exam: M47.9 - Spondylosis, unspecified No fracture or dislocation. Minimal levoscoliosis. There is spondylosis. Normal paraspinal soft tissu e structures. Slightly increased thoracic kyphosis. XR/XR thoracic spine 3V* [id number] IMPRESSION: 1. Mild degenerative changes and osteopenia. 2. No fracture or malalignment. 3. Mild scoliosis and increased kyphosis.
== END 2021-03-28 12:34 | disposition home or self-care (01) ==
LOC: RAD 12:37
PROVIDERS: PCP Nurse Practitioner Family; Visit Provider Nurse Practitioner
DX: M47.9 Spondylosis, unspecified (principal); M85.88 Other specified disorders of bone density and structure, other site; M40.294 Other kyphosis, thoracic region
CPT/HCPCS: 72040; 72072; 72100

== ENCOUNTER → 2021-04-18 16:20 | Outpatient (BNVA) | payer MEDICARE, MEDICAID, SELFPAY | PROVIDERS: PCP Nurse Practitioner Family; Visit Provider Nurse Practitioner Family | DX: M25.511 Pain in right shoulder (principal); G89.29 Other chronic pain; D50.9 Iron deficiency anemia, unspecified; F41.9 Anxiety disorder, unspecified; R63.0 Anorexia; M19.011 Primary osteoarthritis, right shoulder | CPT/HCPCS: 73030; 83540; 84443; 85025 ==

== ENCOUNTER → 2021-05-17 10:05 | Outpatient (BNVA) | payer MEDICARE, MEDICAID, SELFPAY | PROVIDERS: PCP Nurse Practitioner Family; Visit Provider Nurse Practitioner Family | DX: E05.90 Thyrotoxicosis, unspecified without thyrotoxic crisis or storm (principal) | CPT/HCPCS: 80053; 84443 ==

== ENCOUNTER → 2021-07-04 08:49 | Outpatient (BNVA) | payer MEDICARE, MEDICAID, SELFPAY | PROVIDERS: PCP Nurse Practitioner Family; Visit Provider Nurse Practitioner Family | DX: R30.0 Dysuria (principal); E55.9 Vitamin D deficiency, unspecified; L65.9 Nonscarring hair loss, unspecified; N39.0 Urinary tract infection, site not specified | CPT/HCPCS: 81000; 82306; 87077; 87086; 87184 ==

== ENCOUNTER → 2021-07-10 10:15 | Outpatient (BNVA) | payer MEDICARE, MEDICAID, SELFPAY | PROVIDERS: PCP Nurse Practitioner Family; Visit Provider Nurse Practitioner Family | DX: R82.90 Unspecified abnormal findings in urine (principal); N39.0 Urinary tract infection, site not specified; R11.0 Nausea; K21.9 Gastro-esophageal reflux disease without esophagitis; I10 Essential (primary) hypertension; J30.89 Other allergic rhinitis; F41.9 Anxiety disorder, unspecified; E05.90 Thyrotoxicosis, unspecified without thyrotoxic crisis or storm; E04.9 Nontoxic goiter, unspecified; E55.9 Vitamin D deficiency, unspecified; D64.9 Anemia, unspecified | CPT/HCPCS: 81000 ==

== ENCOUNTER 2021-08-09 10:23 | Outpatient (CLI) | payer MEDICARE, MEDICAID, SELFPAY ==
--- NOTE | 2021-08-09 11:15 | US_ITS ---
WS: [email or web address] Thyroid ultrasound, 08/09/2021 Clinical Data: E05.90 - Thyrotoxicosis, unspecified without thyrotoxic c... Comparison: Thyroid ultrasound, 08/24/2020. Findings: The right lobe of thyroid measures 6.6 cm x 4.8 cm x 3.1 cm. The left lobe measures 5.8 cm x 3.6 cm x 1.9 cm. The isthmus measured 0.3 mm. The echotexture of the thyroid is heterogeneous with multiple small cysts. No cervical lymphadenopath y is seen. No change from prior ultrasound is seen. US/US thyroid [id number] Impression: Multinodular goiter.
== END 2021-08-09 10:24 | disposition home or self-care (01) ==
LOC: RAD 10:25
PROVIDERS: PCP Nurse Practitioner Family; Visit Provider Nurse Practitioner Family
DX: E05.90 Thyrotoxicosis, unspecified without thyrotoxic crisis or storm (principal)
CPT/HCPCS: 76536

== ENCOUNTER 2021-08-11 11:08 | Outpatient (CLI) | payer MEDICARE, MEDICAID, SELFPAY ==
--- NOTE | 2021-08-11 11:45 | MR_ITS ---
WS: [id number] MRI RIGHT SHOULDER NONCONTRAST TECHNIQUE: Sagittal T2, coronal T1, T2 and proton density imaging. Axial gradient PDE imaging. CLINICAL INFORMATION: M25.511 - Pain in right shoulder COMPARISON: None. FINDINGS: Moderate degenerative arthritis AC joint with edema and fluid. Small amount of subacromial/subdeltoid fluid. Mild downsloping acromion. Slight subacromial spurring. Impingement on the distal supraspinat us. Tiny intrasubstance tears involving the distal supraspinatus at the insertion and just proximal t o the insertion. No complete tears. No tendon retraction. Tendinopathy in the supraspinatus with civil engineering drafter whit thinning. Normal infraspinatus. Normal teres minor. Normal subscapularis. Small subcoracoid effusion. Normal in tra-articular biceps tendon. Normal biceps tendon in the bicipital groove. Degenerative fraying of the glenoid labrum. Subchondral cystic change involving the greater tuberosity. Normal biceps labral anchor. MR/MR shoulder RT wo con* [id number] IMPRESSION: 1. Moderate degenerative arthritis AC joint with fluid and edema. Slight subac romial spurring. 2. Tiny intrasubstance tears at the supraspinatus insertion and just proximal to the insertion. No full-thickness tears. 3. Chronic thinning and tendinopathy involving the supraspinatus. 4. Rotator cuff is otherwise intact. 5. Normal biceps tendon in the bicipital groove. Normal intra-articular biceps tendon. 6. Small subcoracoid effusion.
== END 2021-08-11 11:09 | disposition home or self-care (01) ==
LOC: RAD 11:10
PROVIDERS: PCP Nurse Practitioner Family; Visit Provider Nurse Practitioner Family
DX: M25.511 Pain in right shoulder (principal)
CPT/HCPCS: 73221

== ENCOUNTER → 2021-09-28 14:20 | Outpatient (BNVA) | payer MEDICARE, MEDICAID, SELFPAY | PROVIDERS: PCP Nurse Practitioner Family; Visit Provider Nurse Practitioner Family | DX: E05.90 Thyrotoxicosis, unspecified without thyrotoxic crisis or storm (principal); E04.9 Nontoxic goiter, unspecified | CPT/HCPCS: 80053; 84443; 85025 ==

== ENCOUNTER → 2021-10-04 08:07 | Outpatient (BNVA) | payer MEDICARE, MEDICAID, SELFPAY | PROVIDERS: PCP Nurse Practitioner Family; Referring Provider Nurse Practitioner Family; Visit Provider Otolaryngology | DX: E04.9 Nontoxic goiter, unspecified (principal); E05.90 Thyrotoxicosis, unspecified without thyrotoxic crisis or storm | CPT/HCPCS: 99204 ==

== ENCOUNTER → 2021-10-25 08:38 | Outpatient (BNVA) | payer MEDICARE, MEDICAID, SELFPAY | PROVIDERS: PCP Nurse Practitioner Family; Referring Provider Nurse Practitioner Family; Visit Provider Specialist | DX: M19.012 Primary osteoarthritis, left shoulder (principal); M19.011 Primary osteoarthritis, right shoulder; M25.512 Pain in left shoulder; M25.511 Pain in right shoulder | CPT/HCPCS: 73030 ==

== ENCOUNTER 2021-10-25 13:00 | Outpatient (CLI) | payer MEDICARE, MEDICAID, SELFPAY | END 2021-10-25 23:00 | disposition home or self-care (01) | LOC: RAD 01-09 00:55 | PROVIDERS: PCP Nurse Practitioner Family; Visit Provider Specialist | DX: M75.01 Adhesive capsulitis of right shoulder (principal); M75.02 Adhesive capsulitis of left shoulder | CPT/HCPCS: 99204 ==

== ENCOUNTER 2021-11-03 11:02 | Outpatient (CLI) | payer MEDICARE, MEDICAID, SELFPAY ==
--- NOTE | 2021-11-03 12:00 | CT_ITS ---
WS: [email or web address] CT LUMBAR SPINE, noncontrast. HISTORY: M47.9 - Spondylosis, unspecified TECHNIQUE: Contiguous 2.0 mm axial imaging are performed. Sagittal and coronal reformats are submitte d and reviewed. All CT scans at [facility] use at least one of these dose optimization techni ques: automated exposure control; mA and/or kV adjustment per patient size (includes targeted exams w here dose is matched to clinical indication); or iterative reconstruction. IV contrast: None DLP: 1053.80 mGy.cm COMPARISON: 03/28/2021 Mild curvature to the LEFT of the lower lumbar spine. Asymmetric disc space narrowing of L4-5. Narrow ing of the RIGHT lateral disc space. No fractures are identified. Mild spondylitic changes and disc s pace narrowing throughout the lumbar spine. Facet joints are normally aligned. L1-2: Mild osteophytic ridging. No stenosis. L2-3: Mild annular disc bulging and osteophytic ridging. L3-4: Diffuse asymmetric disc bulging. No contact on the nerve roots. Mild encroachment upon the vent ral thecal sac and RIGHT subarticular recess. L4-5: Mild diffuse disc bulging with a very shallow central disc protrusion. Moderate bilateral ligam entum flavum hypertrophy and facet arthritis. Mild bilateral foraminal and subarticular recess and mi ld central stenosis. L5-S1: Mild osteophytic ridging resulting in mild bilateral foraminal stenosis. No high-grade central stenosis or disc protrusion. Small amount of air in the SI joints bilaterally. CT/CT lumbar spine wo con* [id number] IMPRESSION: 1. Mild central, bilateral subarticular recess and foraminal stenosis at L4-5. 2. Mild bilateral foraminal stenosis at L5-S1 predominantly due to osteophytes . 3. Mild RIGHT subarticular recess encroachment at L3-4. 4. Asymmetric disc space narrowing at L4-5.
== END 2021-11-03 11:03 | disposition home or self-care (01) ==
LOC: RAD 11:03
PROVIDERS: Absent Provider General Practice; PCP Nurse Practitioner Family; Visit Provider Nurse Practitioner Family
DX: M54.50 Low back pain, unspecified (principal); G89.29 Other chronic pain; M47.9 Spondylosis, unspecified; M48.07 Spinal stenosis, lumbosacral region
CPT/HCPCS: 72131

== ENCOUNTER → 2021-12-12 10:52 | Outpatient (BNVA) | payer MEDICARE, MEDICAID, SELFPAY | PROVIDERS: PCP Nurse Practitioner Family; Visit Provider Nurse Practitioner Family | DX: E05.90 Thyrotoxicosis, unspecified without thyrotoxic crisis or storm (principal); E55.9 Vitamin D deficiency, unspecified; R11.0 Nausea; K21.9 Gastro-esophageal reflux disease without esophagitis; I10 Essential (primary) hypertension; J30.89 Other allergic rhinitis; F41.9 Anxiety disorder, unspecified | CPT/HCPCS: 80053; 80061; 84443; 85025 ==

== ENCOUNTER 2022-01-23 09:52 | Outpatient (CLI) | payer MEDICARE, MEDICAID, SELFPAY ==
--- NOTE | 2022-01-23 10:30 | CT_ITS ---
WS: [email or web address] NONCONTRAST CT LEFT SHOULDER TECHNIQUE: Noncontrast CT LEFT shoulder with coronal and sagittal reformatted images. CLINICAL INFORMATION: M25.512 - Pain in left shoulder COMPARISON: None. DLP: 990.[address] scans at [facility] use at least one of these dose optimization techniques: automated e xposure control; mA and/or kV adjustment per patient size (includes targeted exams where dose is matc hed to clinical indication); or iterative reconstruction. FINDINGS: Osteopenia. Moderate degenerative arthritis glenohumeral joint with joint space narrowing. Degenerati ve arthritis at the AC joint with mild downsloping of the acromion. Narrowing of the subacromial spac e. No acute fractures. Visualized LEFT ribs are normal.Surgical clips LEFT axilla. Partially visualiz ed breast prosthesis. Multinodular goiter with calcifications. Mild narrowing of the trachea at the thoracic inlet. Large e sophageal hiatal hernia. Partially visualized LEFT lung is well aerated. CT/CT shoulder LT wo con* [id number] IMPRESSION: 1. Moderate degenerative arthritis glenohumeral joint with joint space narrowi ng. No acute fractures. Subchondral cystic change involving the humeral head. 2. Moderate degenerative arthritis of the AC joint with mild downsloping acrom ion. Narrowing of the subacromial space. 3. Partially visualized multinodular goiter. 4. Large esophageal hiatal hernia partially visualized.
== END 2022-01-23 09:53 | disposition home or self-care (01) ==
PROVIDERS: PCP Nurse Practitioner Family; Visit Provider Nurse Practitioner Family
DX: M19.012 Primary osteoarthritis, left shoulder (principal); E04.9 Nontoxic goiter, unspecified; K44.9 Diaphragmatic hernia without obstruction or gangrene
CPT/HCPCS: 73200

== ENCOUNTER → 2022-06-04 08:44 | Outpatient (BNVA) | payer MEDICARE, MEDICAID, SELFPAY | PROVIDERS: PCP Nurse Practitioner Family; Visit Provider Nurse Practitioner Family | DX: I10 Essential (primary) hypertension (principal) | CPT/HCPCS: 80053; 80061; 84443; 85025 ==

== ENCOUNTER → 2022-09-28 10:04 | Outpatient (BNVA) | payer MEDICARE, MEDICAID, SELFPAY | PROVIDERS: PCP Nurse Practitioner Family; Visit Provider Nurse Practitioner Family | DX: L57.0 Actinic keratosis (principal); S80.922A Unspecified superficial injury of left lower leg, initial encounter; X58.XXXA Exposure to other specified factors, initial encounter; Z86.007 Personal history of in-situ neoplasm of skin; L57.8 Other skin changes due to chronic exposure to nonionizing radiation; L81.4 Other melanin hyperpigmentation; D22.5 Melanocytic nevi of trunk; L85.3 Xerosis cutis; L82.1 Other seborrheic keratosis | CPT/HCPCS: 17004; 99214 ==

== ENCOUNTER → 2022-11-21 15:46 | Outpatient (BNVA) | payer MEDICARE, MEDICAID, SELFPAY | PROVIDERS: PCP Nurse Practitioner Family; Visit Provider Nurse Practitioner Family | DX: R11.0 Nausea (principal); K21.9 Gastro-esophageal reflux disease without esophagitis; E05.90 Thyrotoxicosis, unspecified without thyrotoxic crisis or storm; I10 Essential (primary) hypertension; J30.89 Other allergic rhinitis; F41.9 Anxiety disorder, unspecified; E55.9 Vitamin D deficiency, unspecified; J06.9 Acute upper respiratory infection, unspecified; Z79.891 Long term (current) use of opiate analgesic; D64.9 Anemia, unspecified; Z85.3 Personal history of malignant neoplasm of breast; E04.9 Nontoxic goiter, unspecified | CPT/HCPCS: 80053; 80061; 82306; 83036; 84443; 85025 ==

== ENCOUNTER → 2022-12-17 15:59 | Outpatient (BNVA) | payer MEDICARE, MEDICAID, SELFPAY | PROVIDERS: PCP Nurse Practitioner Family; Visit Provider Nurse Practitioner Family | DX: D50.9 Iron deficiency anemia, unspecified (principal); M25.512 Pain in left shoulder | CPT/HCPCS: 83540; 85025 ==

== ENCOUNTER 2023-02-11 14:55 | Emergency (ER) | payer MEDICARE, MEDICAID, SELFPAY ==
[2023-02-11 15:01] VITALS: BP 192/90; PULSE 73; RESP 18; TEMP 36.8; O2SAT 100; BMI 18.8
--- NOTE | 2023-02-11 15:12 | CT_ITS ---
WS: [email or web address] CT HEAD NONCONTRAST HISTORY: fall/AMS TECHNIQUE: Contiguous axial imaging performed through the brain in 2.5 mm imaging. Bone and soft tiss ue windows. Sagittal and coronal reformats reviewed. All CT scans at [facility] use at least one of these dose optimization techniques: automated exposure control; mA and/or kV adjustment per pa tient size (includes targeted exams where dose is matched to clinical indication); or iterative recon struction. DLP: 1195.20 mGy.cm COMPARISON: 02/26/2020 No acute intracranial hemorrhage, midline shift or mass effect. Very minimal volume loss and small vessel ischemic disease. No acute intracranial edema or hemorrhage . Ventricles: Normal size with no hydrocephalus. Paranasal sinuses: As visualized are clear. Mastoid air cells: Well pneumatized. Calvarium and scalp: Skull is intact with no soft tissue edema or swelling. IMPRESSION: No acute intracranial hemorrhage or edema. Stable noncontrast head CT since 04/28/2019.
--- NOTE | 2023-02-11 15:12 | XRR_ITS ---
PROCEDURE INFORMATION: Exam: XR Bilateral Hips Exam date and time: 02/11/2023 3:35 PM Age: 77 years old Clinical indication: Injury or trauma; Fall; Blunt trauma (contusions or hematomas); Bilateral; Hip; Additional info: Fall pain TECHNIQUE: Imaging protocol: Radiologic exam of the bilateral hips. Views: 2 views of hips with pelvis when performed. COMPARISON: CT abdomen pelvis wo con [id number] 07/30/2020 10:59 AM FINDINGS: Bones/joints: No acute fracture. Soft tissues: Unremarkable. XR/XR hip BI 3-4V wo/w pel [id number] IMPRESSION: No acute findings.
--- NOTE | 2023-02-11 15:12 | CT_ITS ---
WS: [email or web address] CT CERVICAL SPINE HISTORY: fall TECHNIQUE: Contiguous 2.0 mm axial imaging performed through the entire cervical spine. Sagittal and coronal reformats also performed. All CT scans at [facility] use at least one of these dose o ptimization techniques: automated exposure control; mA and/or kV adjustment per patient size (include s targeted exams where dose is matched to clinical indication); or iterative reconstruction. DLP: 1195.20 mGy.cm COMPARISON: 08/20/2016 Less than 2 mm anterolisthesis of C3. Disc spaces are mildly narrowed and desiccated. Craniocervical junction is normally aligned. Lateral masses of C1 and C2 are aligned. The odontoid is intact. Facet joints are narrowed from arthritis. No subluxation of the facet joints or widening of the interspinou s processes. C2-C3: Normal. C3-C4: Severe LEFT facet arthritis. Mild LEFT foraminal narrowing. C4-C5: Osteophytic ridging and LEFT facet arthritis. Mild central LEFT foraminal narrowing. C5-C6: Osteophytic ridging and mild facet arthritis. Mild bilateral foraminal narrowing. C6-C7: Mild foraminal narrowing. C7-T1: Normal. Markedly enlarged thyroid with numerous nodules. Multinodular goiter with encroachment upon the trach ea has been previously described. Air-fluid level in the upper esophagus. IMPRESSION: 1. No acute cervical fracture is identified. 2. Facet joint arthritis and stenoses as described above. 3. Markedly enlarged, multinodular thyroid. Previously described in 2017. 4. Dilated upper thoracic esophagus with debris. Patient is at risk for aspiration pneumonia. Dilated esophagus can be seen with multiple entities including scleroderma. A dilated fluid-filled, debris- filled esophagus was also noted in 2017.
[2023-02-11 15:27] VITALS: BP 185/91; PULSE 74; O2SAT 99
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
[2023-02-11 16:21] VITALS: BP 157/72; PULSE 77; O2SAT 100
[2023-02-11] MEDS: lidocaine-epi 1% 20 mL INJ 10 ML INJECTION (16:21)
[2023-02-11] MEDS: HYDROcodone-acetaminophen 5-325 mg Tablet 1 TAB PO (16:38)
[2023-02-11 16:41] LABS: Basophils # 0.1 10^3/uL (0.0-0.1); Basophils % 0.9 %; Eosinophils # 0.1 10^3/uL (0.0-0.8); Hematocrit 37.8 % (36-47); Lymphocytes # 0.9 10^3/uL (0.8-4.8); Lymphocytes % 15.6 %; Mean Corpuscular HGB Conc 29.6 g/dL (30-55); Mean Corpuscular Hemoglobin 24.5 pg (27-33); Mean Corpuscular Volume 82.5 fl (85-98); Mean Platelet Volume 9.6 fL (7.4-10.4); Monocytes # 0.5 10^3/uL (0.2-0.9); Monocytes % 8.7 %; Neutrophils % 72.4 %; Nucleated Red Blood Cells % 0 %; Platelet Count 314 10^3/cmm (157-399); Red Blood Count 4.58 10^6/uL (3.85-5.65); Red Cell Distribution Width 17.6 % (12.1-15.1); White Blood Count 5.52 10^3/uL (3.29-11.43)
[2023-02-11 16:46] LABS: Alanine Aminotransferase 22 U/L (0-33); Albumin Level 4.3 g/dL (3.5-5.2); Alkaline Phosphatase 109 U/L (35-105); Anion Gap 14.1 (5-19); Aspartate Amino Transferase 31 U/L (0-32); Blood Urea Nitrogen 11 mg/dL (8-23); Calcium 9.9 mg/dL (8.5-10.5); Carbon Dioxide 24 mmol/L (22-29); Chloride 105 mmol/L (98-107); Globulin 3.4 g/dL (1.3-4.6); Glucose 107 mg/dL (65-115); Osmolality Calculated 288 mOsm/kg (285-295); Potassium 4.1 mmol/L (3.5-5.1); Sodium 139 mmol/L (136-145); Total Bilirubin 0.2 mg/dL (0.15-1.2); Total Protein 7.7 g/dL (6.6-8.7)
[2023-02-11] MEDS: neomycin-poly-bacitracin oint 28 gm 1 APPLIC TOPICAL (16:54)
[2023-02-11 16:55] VITALS: BP 167/82; PULSE 74; O2SAT 100
== END 2023-02-11 17:06 | disposition home or self-care (01) ==
PROVIDERS: Emergency Provider Internal Medicine; PCP Nurse Practitioner Family
DX: S01.81XA Laceration without foreign body of other part of head, initial encounter (principal); S06.0XAA Concussion with loss of consciousness status unknown, initial encounter; M25.551 Pain in right hip; Z85.3 Personal history of malignant neoplasm of breast; I10 Essential (primary) hypertension; W18.30XA Fall on same level, unspecified, initial encounter; Y92.524 Gas station as the place of occurrence of the external cause
CPT/HCPCS: 36415; 70450; 72125; 73522; 80053; 85025; 99284

== ENCOUNTER → 2023-02-18 11:24 | Outpatient (BNVA) | payer MEDICARE, MEDICAID, SELFPAY | PROVIDERS: PCP Nurse Practitioner Family; Visit Provider Nurse Practitioner Family | DX: M25.531 Pain in right wrist (principal); S69.90XA Unspecified injury of unspecified wrist, hand and finger(s), initial encounter; X58.XXXA Exposure to other specified factors, initial encounter | CPT/HCPCS: 73110 ==

== ENCOUNTER → 2023-03-26 10:25 | Outpatient (BNVA) | payer MEDICARE, MEDICAID, SELFPAY | PROVIDERS: PCP Nurse Practitioner Family; Visit Provider Nurse Practitioner Family | DX: L72.0 Epidermal cyst (principal); L57.8 Other skin changes due to chronic exposure to nonionizing radiation; L57.0 Actinic keratosis; L82.0 Inflamed seborrheic keratosis | CPT/HCPCS: 17000; 17110; 99213 ==

== ENCOUNTER → 2023-04-15 10:30 | Outpatient (BNVA) | payer MEDICARE, MEDICAID, SELFPAY | PROVIDERS: PCP Nurse Practitioner Family; Visit Provider Nurse Practitioner Family | DX: D50.9 Iron deficiency anemia, unspecified (principal); I10 Essential (primary) hypertension; E05.90 Thyrotoxicosis, unspecified without thyrotoxic crisis or storm; E55.9 Vitamin D deficiency, unspecified; D64.9 Anemia, unspecified; Z79.891 Long term (current) use of opiate analgesic; Z79.899 Other long term (current) drug therapy | CPT/HCPCS: 80053; 80061; 82306; 83540; 84443; 85025 ==

== ENCOUNTER → 2023-05-03 09:47 | Outpatient (BNVA) | payer MEDICARE, MEDICAID, SELFPAY | PROVIDERS: PCP Nurse Practitioner Family; Visit Provider Nurse Practitioner Family | DX: D64.9 Anemia, unspecified (principal); E67.3 Hypervitaminosis D; D50.9 Iron deficiency anemia, unspecified | CPT/HCPCS: 82306; 85025 ==

== ENCOUNTER → 2023-06-03 08:16 | Outpatient (BNVA) | payer MEDICARE, MEDICAID, SELFPAY | PROVIDERS: PCP Nurse Practitioner Family; Visit Provider Nurse Practitioner Family | DX: E55.9 Vitamin D deficiency, unspecified (principal); D50.9 Iron deficiency anemia, unspecified | CPT/HCPCS: 82306; 85025 ==

== ENCOUNTER → 2023-07-22 08:51 | Outpatient (BNVA) | payer MEDICARE, MEDICAID, SELFPAY | PROVIDERS: PCP Nurse Practitioner Family; Visit Provider Nurse Practitioner Family | DX: L57.0 Actinic keratosis (principal); L82.0 Inflamed seborrheic keratosis; D23.71 Other benign neoplasm of skin of right lower limb, including hip; L57.8 Other skin changes due to chronic exposure to nonionizing radiation; L81.4 Other melanin hyperpigmentation | CPT/HCPCS: 17000; 17110; 99213 ==

== ENCOUNTER → 2023-07-23 14:46 | Outpatient (BNVA) | payer MEDICARE, MEDICAID, SELFPAY | PROVIDERS: PCP Nurse Practitioner Family; Visit Provider Nurse Practitioner Family | DX: M25.512 Pain in left shoulder (principal); D64.9 Anemia, unspecified; Z79.891 Long term (current) use of opiate analgesic; I10 Essential (primary) hypertension | CPT/HCPCS: 80053; 80061; 82306; 83540; 84443; 85025 ==

== ENCOUNTER 2023-08-16 08:00 | Oncology outpatient (recurring) (ONCR) | payer MEDICARE, MEDICAID, SELFPAY ==
[2023-08-13 14:07] LABS: Basophils # 0.1 10^3/uL (0.0-0.1); Basophils % 1.1 %; Eosinophils # 0.2 10^3/uL (0.0-0.8); Eosinophils % 3.4 %; Hematocrit 29.6 % (36-47); Lymphocytes % 21.3 %; Mean Corpuscular HGB Conc 28.7 g/dL (30-55); Mean Corpuscular Hemoglobin 21.8 pg (27-33); Mean Corpuscular Volume 75.9 fl (85-98); Mean Platelet Volume 9.2 fL (7.4-10.4); Monocytes # 0.5 10^3/uL (0.2-0.9); Monocytes % 10.8 %; Neutrophils % 63.2 %; Nucleated Red Blood Cells % 0 %; Platelet Count 292 10^3/cmm (157-399); White Blood Count 4.74 10^3/uL (3.29-11.43)
[2023-08-13 14:29] LABS: Alanine Aminotransferase 14 U/L (0-33); Albumin Level 4.6 g/dL (3.5-5.2); Alkaline Phosphatase 103 U/L (35-105); Anion Gap 13.2 (5-19); Aspartate Amino Transferase 20 U/L (0-32); Blood Urea Nitrogen 19 mg/dL (8-23); Calcium 9.1 mg/dL (8.5-10.5); Carbon Dioxide 25 mmol/L (22-29); Chloride 103 mmol/L (98-107); Creatinine Clr Calc Pharmacy 52.4129; Ferritin 8 ng/mL (15-150); Globulin 3.2 g/dL (1.3-4.6); Glucose 101 mg/dL (65-115); Iron 26 ug/dL (37-145); Osmolality Calculated 286 mOsm/kg (285-295); Percent Saturation 5.9 % (20-50); Potassium 4.2 mmol/L (3.5-5.1); Sodium 137 mmol/L (136-145); Total Bilirubin 0.2 mg/dL (0.15-1.2); Total Iron Binding Capacity 434 mcg/dl; Total Protein 7.8 g/dL (6.6-8.7); Unsaturated Iron Binding 408 ug/dL (112-347)
[2023-08-16] VITALS (7 sets, daily range): BP systolic 87–173; BP diastolic 56–83; PULSE 44–66; RESP 18; TEMP 35.9; O2SAT 98–99
[2023-08-16] MEDS: iron sucrose 500 MG in sodium chloride 0.9% 250 ML 95 MG IV (08:48)
[2023-08-16] MEDS: sodium chloride 0.9% 250 ML 999 ML IV ×2 (12:00→12:15)
== END 2023-09-08 23:59 | disposition home or self-care (01) ==
PROVIDERS: PCP Nurse Practitioner Family; Visit Provider Internal Medicine Medical Oncology
DX: D64.9 Anemia, unspecified (principal); Z53.9 Procedure and treatment not carried out, unspecified reason
CPT/HCPCS: 36415; 80053; 82728; 83540; 83550; 85025; 96365; 96366; 99205; J1756; J7050

== ENCOUNTER 2023-08-16 13:03 | Emergency (ER) | payer MEDICARE, MEDICAID, SELFPAY ==
[2023-08-16 13:11] VITALS: BP 116/70; PULSE 59; RESP 16; TEMP 36.3; O2SAT 99; BMI 19.1
--- NOTE | 2023-08-16 13:20 | ECG_ITS ---
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 Measurements Intervals [place] Rate: 69 P: 59 OR: 203 QRS: 24 QRSD: 90 T: 57 QT: 416 QTc: 446 Interpretive Statements SINUS RHYTHM No previous ECG available for comparison Electronically Signed On 08-18-2023 20:09:52 CDT by Jack Robin M.D. [id number]
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
[2023-08-16] MEDS: sodium chloride 0.9% 1,000 ML 999 ML IV (13:49)
[2023-08-16 14:04] VITALS: BP 124/65; PULSE 68; RESP 18; O2SAT 100
[2023-08-16 14:30] VITALS: PULSE 72; RESP 16; O2SAT 100
--- NOTE | 2023-08-16 14:50 | ECG_ITS ---
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 Measurements Intervals [place] Rate: 68 P: 58 [place]: 260 QRS: 23 QRSD: 89 T: 58 QT: 392 QTc: 417 Interpretive Statements SINUS RHYTHM WITH FIRST DEGREE AV BLOCK Compared to ECG 08/16/2023 13:26:06 First degree AV block now present Electronically Signed On 08-18-2023 20:09:56 CDT by Jack Robin M.D. [id number]
[2023-08-16 15:00] VITALS: BP 146/81; PULSE 71; RESP 14; O2SAT 97
[2023-08-16 15:01] VITALS: RESP 16
[2023-08-16] MEDS: morphine 4 mg/mL SDV 1 mL IVP (15:01)
[2023-08-16] MEDS: ondansetron 2 mg/ML SDV 2 mL 4 MG IVP (15:01)
[2023-08-16 16:05] VITALS: BP 141/82; PULSE 82; RESP 16; TEMP 36.3; O2SAT 98
== END 2023-08-16 14:01 | disposition home or self-care (01) ==
PROVIDERS: Emergency Provider Emergency Medicine; PCP Nurse Practitioner Family
DX: R42 Dizziness and giddiness (principal); T45.4X5A Adverse effect of iron and its compounds, initial encounter; Z85.3 Personal history of malignant neoplasm of breast; I10 Essential (primary) hypertension
CPT/HCPCS: 93005; 96374; 96375; 99284; J2270; J2405; J7030

== ENCOUNTER → 2023-09-16 10:03 | Outpatient (BNVA) | payer MEDICARE, MEDICAID, SELFPAY | PROVIDERS: PCP Nurse Practitioner Family; Visit Provider Nurse Practitioner Family | DX: D50.9 Iron deficiency anemia, unspecified; E67.3 Hypervitaminosis D | CPT/HCPCS: 82306; 83540; 85025 ==

== ENCOUNTER → 2023-11-07 13:02 | Outpatient (BNVA) | payer MEDICARE, MEDICAID, SELFPAY | PROVIDERS: PCP Nurse Practitioner Family; Visit Provider Nurse Practitioner Family | DX: L57.8 Other skin changes due to chronic exposure to nonionizing radiation (principal); L81.4 Other melanin hyperpigmentation; L57.0 Actinic keratosis; D69.2 Other nonthrombocytopenic purpura; L82.0 Inflamed seborrheic keratosis | CPT/HCPCS: 17000; 17110; 99213 ==

== ENCOUNTER → 2024-01-07 08:18 | Outpatient (BNVA) | payer MEDICARE, MEDICAID, SELFPAY | PROVIDERS: PCP Nurse Practitioner Family; Visit Provider Nurse Practitioner Family | DX: L27.1 Localized skin eruption due to drugs and medicaments taken internally (principal); L57.0 Actinic keratosis; L82.0 Inflamed seborrheic keratosis; W89.1XXA Exposure to tanning bed, initial encounter; L57.8 Other skin changes due to chronic exposure to nonionizing radiation; L81.4 Other melanin hyperpigmentation; X58.XXXA Exposure to other specified factors, initial encounter | CPT/HCPCS: 17000; 17110; 99213 ==

== ENCOUNTER → 2024-04-24 09:47 | Outpatient (BNVA) | payer MEDICARE, MEDICAID, SELFPAY | PROVIDERS: PCP Nurse Practitioner Family; Visit Provider Nurse Practitioner Family | DX: L57.8 Other skin changes due to chronic exposure to nonionizing radiation (principal); W89.1XXA Exposure to tanning bed, initial encounter; L81.4 Other melanin hyperpigmentation; E04.2 Nontoxic multinodular goiter; L72.0 Epidermal cyst; L82.0 Inflamed seborrheic keratosis; L73.8 Other specified follicular disorders; D48.5 Neoplasm of uncertain behavior of skin; L53.8 Other specified erythematous conditions; L57.0 Actinic keratosis | CPT/HCPCS: 11102; 17000; 17110; 99213 ==

== ENCOUNTER 2024-08-10 07:57 | Outpatient (CLI) | payer OTHER, MEDICAID, SELFPAY ==
--- NOTE | 2024-08-10 08:00 | CT_ITS ---
WS: [id number] CT HEAD TECHNIQUE: Noncontrast CT of the head obtained from the skullbase to the vertex. CLINICAL INFORMATION: NEW ONSET OF HEADACHES AFTER AGE 50 COMPARISON: 2022 DLP: 945.[address] scans at [facility] use at least one of these dose optimization techniques: automated exposure control; mA and/or kV adjustment per patient size (includes targeted exams where dose is matched to clinical indication); or iterative reconstruction. FINDINGS: No evidence of intracranial hemorrhage or mass effect. Ventricular system and basal cisterns are patent. Mild small vessel changes with mild parenchymal volume loss. No extra-axial fluid collections. No evidence of mass or mass effect. Vascular calcification Paranasal sinuses and mastoid air cells are well aerated. .Normal visualized soft tissues. CT/CT head wo con* [id number] IMPRESSION: 1. No evidence of intracranial hemorrhage or mass effect. 2. Mild small vessel changes with mild parenchymal volume loss. 3. Vascular calcification. 4. No acute intracranial findings.
== END 2024-08-10 07:58 | disposition home or self-care (01) ==
LOC: RAD 07:58
PROVIDERS: PCP Nurse Practitioner Family; Visit Provider Nurse Practitioner Family
DX: R51.9 Headache, unspecified (principal); R93.0 Abnormal findings on diagnostic imaging of skull and head, not elsewhere classified; I67.2 Cerebral atherosclerosis
CPT/HCPCS: 70450

== ENCOUNTER → 2024-10-01 09:36 | Outpatient (BNVA) | payer OTHER, MEDICAID, SELFPAY | PROVIDERS: PCP Nurse Practitioner Family; Visit Provider Nurse Practitioner Family | DX: L57.8 Other skin changes due to chronic exposure to nonionizing radiation (principal); W89.1XXA Exposure to tanning bed, initial encounter; L81.4 Other melanin hyperpigmentation; D23.71 Other benign neoplasm of skin of right lower limb, including hip; L82.0 Inflamed seborrheic keratosis; L53.8 Other specified erythematous conditions; R20.8 Other disturbances of skin sensation; Z78.9 Other specified health status; L29.89 Other pruritus; D48.5 Neoplasm of uncertain behavior of skin; L57.0 Actinic keratosis | CPT/HCPCS: 11102; 17000; 17110; 99213 ==